=== PATIENT | male | born 1980 | race Caucasian/White ===

== ENCOUNTER 2019-01-19 17:39 | Emergency (ER) | payer OTHER ==
--- OUTSIDE RECORDS SUMMARY | 2019-01-19 17:41 | XMS REPORT | Summary of Care ---
:1980 Author Organization [facility] Address [address] [place] [address] Care Team Providers Name Role Phone Wilson Bailon Primary Care Provider Reason for Referral (Routine) Status Reason Specialty Diagnoses / Procedures Referred By Contact Referred To Contact Closed Cardiology Diagnoses Chest pain, unspecified type Jaden Francisco MD Procedures DOBUTAMINE STRESS ECHO Preferred Location: [address] [place] [address] Reason for Visit (Routine) Status Reason Specialty Diagnoses / Procedures Referred By Contact Referred To Contact Closed Cardiology Diagnoses Chest pain, unspecified type Jaden Francisco MD Procedures DOBUTAMINE STRESS ECHO Preferred Location: [address] [place] [address] Encounter Details Date Type Department Care Team Description 11/02/2018 Laboratory Only [facility] Sean Zarate MD [address] [address] Chest pain, Cardiology- [place] Visit, [facility] Nurse unspecified type [facility], [facility] [address], [facility] [place] [address] Allergies Active Allergy Reactions Severity Noted Date Comments Codeine Hallucinations 02/28/2018 hallucinations Corticosteroids Unknown - See 03/24/2018 All steroids- (Glucocorticoids) comments hallucinations Prednisone Hallucinations 02/28/2018 Any PO steroids documented as of this encounter (statuses as of 11/02/2018) Medications Hospital, Clinic, Ordered Dose Route Frequency Start Date End Date Status or Other Facility Administered Medication NaCl 0.9% (NS) IV 250 mL IV Infusion CONTINUOUS 11/02/2018 Discontinued infusion 250 9 mLIndications: Chest pain, unspecified type DOBUTamine 515 mcg/min IV TITRATE 11/02/2018 Discontinued (DOBUTREX) 500 mg 9 in 250mL(Fixed Dose) D5W infusionIndication s: Chest pain, unspecified type atropine injection 1 mg SIVP ONCE 11/02/2018 Ended 1 mgIndications: 9 Chest pain, unspecified type metoprolol 5 mg SIVP ONCE 11/02/2018 Ended (LOPRESSOR) 9 injection 5 mgIndications: Chest pain, unspecified type sulfur 5 mL SIVP ONCE 11/02/2018 Ended hexafluoride 9 microsphr (LUMASON) injection 5 mLIndications: Chest pain, unspecified type documented as of this encounter (statuses as of 11/02/2018) Active Problems Not on filedocumented as of this encounter (statuses as of 11/02/2018) Social History Tobacco Use Types Packs/Day Years Used Date Never Smoker Smokeless Tobacco: Never Used Alcohol Use Drinks/Week oz/Week Comments No Sex Assigned at Date Recorded Not on file Job Start Date Occupation Industry Not on file Not on file Not on file Travel History Travel Start Travel End No recent travel history available. documented as of this encounter Last Filed Vital Signs Vital Sign Reading Time Taken Comments Blood Pressure 116/75 11/02/2018 10:48 AM CDT Pulse - - Temperature - - Respiratory Rate - - Oxygen Saturation - - Inhaled Oxygen Concentration - - Weight 101.6 kg (224 lb) 11/02/2018 10:00 AM CDT Height 180.3 cm (5' 11") 11/02/2018 10:00 AM CDT Body Mass Index 31.24 11/02/2018 10:00 AM CDT documented in this encounter Patient Instructions Rehana Brewster RN - 11/02/2018 Discharge Instructions: Diet: You may resume your normal diet. Activity: You may resume your normal physical activity including driving and return to work. Medications: You may resume all medications that you were instructed to stop for this test. Site Care: No special instructions. It is possible that a small amount of blood may ooze from the IV site for afew hours following the procedure. In this event, a small bandage may be used over the site. Any blood oozing should stop within a few hours after the IV has been discontinued. You may notice slight bruising or tenderness at the site, which should go away within two to three days. If you notice any swelling, increased soreness or tenderness, redness, red streaks radiating from the IV site, and/or a feeling of warmth or heat around the IV site, notify your physician, as this could indicate infection. Office Visit: Your test results will be provided to your physician. Depending on the results of your test, your physician may want you to schedule a visit within a certain period of time in order to discuss treatment options, additional testing/ diagnostic options, and/or to follow up on your status. Warning Signs/Symptoms to Monitor You should report any chest pain or discomfort, shortness of breath, dizziness or nausea to your physician. If these symptoms are severe and/or persistent, you should call [id number]. If you continue to feel tired or weak for more than a day after the procedure, call your physician immediately. [facility] Cardiology office: [phone] documented in this encounter Plan of Treatment Name Type Priority Associated Diagnoses Order Schedule Oxygen Saturation PROCEDURES Routine Chest pain, CONTINUOUS until unspecified type discontinued starting 11/02/2018 EKG-12 LEAD ROUTINE HEART STATION Routine Chest pain, CONTINUOUS until unspecified type discontinued starting 11/02/2018 Health Maintenance Due Date Last Done Comments VARICELLA VACCINES (1 of 2 - 13+ 1993 2-dose series) DTaP,Tdap,and Td Vaccines ( - 09/16/1999 Tdap) INFLUENZA VACCINE (#1) 2018 PNEUMOCOCCAL 0-64 YEARS COMBINED Aged Out No longer eligible based on SERIES patient's age to complete this topic documented as of this encounter Results Not on filedocumented in this encounter Visit Diagnoses Diagnosis Chest pain, unspecified type documented in this encounter Administered Medications Medication Order MAR Action Action Date Dose Rate Site atropine injection 1 mg Given 11/02/2018 10:59 AM CDT 1 mg 1 mg, Slow IV Push, ONCE, 1 dose, 11/02/18 at 1115, Routine DOBUTamine (DOBUTREX) Rate Change 11/02/2018 11:05 AM 40 mcg/kg/min 123.6 mL/hr 500 mg in 250mL(Fixed CDT Dose) D5W infusion at 15.45 mL/hr, 5 mcg/kg/min 103 kg (15.45 mL/hr), Intravenous, TITRATE, Starting Wed11/02/18 at 1003, Until Wed11/02/18 at 1120, Routine Rate Change 11/02/2018 11:02 AM CDT 30 mcg/kg/min 92.7 mL/hr Rate Change 11/02/2018 10:59 AM CDT 20 mcg/kg/min 61.8 mL/hr metoprolol (LOPRESSOR) injection 5 mg Given 11/02/2018 11:07 AM CDT 2.5 mg 5 mg, Slow IV Push, ONCE, 1 dose, Wed11/02/18 at 1115, Routine NaCl 0.9% (NS) IV infusion 250 mL New Bag 11/02/2018 10:25 AM CDT 250 mL 50 mL/hr at 50 mL/hr, IV Infusion, CONTINUOUS, Starting Wed11/02/18 at 1115, Until Wed11/02/18 at 1120, Routine, To keep vein open, sulfur hexafluoride microsphr (LUMASON) Given 11/02/2018 10:49 AM CDT 5 mL injection 5 mL 5 mL, Slow IV Push, ONCE, 1 dose, Wed11/02/18 at 1115, Routine documented in this encounter Insurance Payer Benefit Plan / Subscriber ID Effective Phone Address Type Group Dates [facility] [id number] 2017-Radhames [phone] [address] [employer] [facility] 86 [id number] [place] [address] (Work) documented as of this encounter
--- OUTSIDE RECORDS SUMMARY | 2019-01-19 17:41 | XMS REPORT | Summary of Care ---
:1980 Author Organization [facility] Address [address] [place] [address] Care Team Providers Name Role Phone Wilson Bailon Primary Care Provider Reason for Referral (Routine) Status Reason Specialty Diagnoses / Procedures Referred By Contact Referred To Contact Closed Cardiology Diagnoses Chest pain, unspecified type Jaden Francisco MD Procedures DOBUTAMINE STRESS ECHO Preferred Location: [address] [place] [address] Reason for Visit (Routine) Status Reason Specialty Diagnoses / Procedures Referred By Contact Referred To Contact Closed Cardiology Diagnoses Chest pain, unspecified type Jaden Francisco MD Procedures DOBUTAMINE STRESS ECHO Preferred Location: [address] [place] [address] Encounter Details Date Type Department Care Team Description 11/02/2018 Laboratory Only [facility] Sean Zarate MD [address] [address] Chest pain, Cardiology- [place] Visit, [facility] Nurse unspecified type [facility], [facility] [address], [facility] [place] [address] Allergies Active Allergy Reactions Severity [...] after the procedure, call your physician immediately. [facility] Cardiology office: [phone] documented in this encounter Plan of Treatment [...] ID Effective Phone Address Type Group Dates [facility] [id number] 2017-Radhames [phone] [address] [employer] [facility] 86 [phone] [place] [address] (Work) documented as of this encounter
--- OUTSIDE RECORDS SUMMARY | 2019-01-19 17:41 | XMS REPORT | Summary of Care ---
:1980 Author Organization [facility] Address [address] [place] [address] Care Team Providers Name Role Phone Uvaldo Wilson Primary Care Provider Reason for Referral (Routine) Status Reason Specialty Diagnoses / Referred By Referred To Procedures Contact Contact Authorized Cardiology Diagnoses Palpitations Jaden Francisco MD Procedures EVENT MONITOR 30 DAYS [address] [facility] [address] [place] [address] (Routine) Status Reason Specialty Diagnoses / Referred By Referred To Procedures Contact Contact Authorized Cardiology Diagnoses Palpitations Jaden Francisco MD Procedures EVENT MONITOR 30 DAYS [address] [facility] [address] [place] [address] (Routine) Status Reason Specialty Diagnoses / Procedures Referred By Contact Referred To Contact Closed Cardiology Diagnoses Chest pain, unspecified type Jaden Francisco MD Procedures DOBUTAMINE STRESS ECHO Preferred Location: [facility] [address] [facility] [address] [place] [address] Reason for Visit Reason Comments Chest Pain Patient was having chest pain for a week and a half on/off Encounter Details Date Type Department Care Team Description 08/31/2018 Office Visit [facility] Jaden Francisco MD Chest pain, unspecified type (Primary Dx); Cardiology- [address] Palpitations 146 [facility], [address] [place] [address] [phone] Allergies Active Allergy Reactions Severity Noted Date Comments Codeine Hallucinations 02/28/2018 hallucinations Corticosteroids Unknown - See 03/24/2018 All steroids- (Glucocorticoids) comments hallucinations Prednisone Hallucinations 02/28/2018 Any PO steroids documented as of this encounter (statuses as of 11/03/2018) Medications No known medicationsdocumented as of this encounter (statuses as of 11/03/2018) Active Problems Not on filedocumented as of this encounter (statuses as of 11/03/2018) Social History Tobacco Use Types Packs/Day Years [...] Sign Reading Time Taken Comments Blood Pressure 109/75 08/31/2018 8:52 AM CDT Pulse 86 08/31/2018 8:52 AM CDT Temperature - - Respiratory Rate 18 08/31/2018 8:52 AM CDT Oxygen Saturation 96% 08/31/2018 8:52 AM CDT Inhaled Oxygen Concentration - - Weight 103 kg (227 lb) 08/31/2018 8:52 AM CDT Height 180.3 cm (5' 11") 08/31/2018 8:52 AM CDT Body Mass Index 31.66 08/31/2018 8:52 AM CDT documented in this encounter Progress Notes Rehana Mark RN - 08/31/2018 8:40 AM CDTPatient enrolled for home delivery of MCOT event monitor through [employer]. Patient should receive monitor in 24-28 hours and begin monitoring as soon as he receives. He verbalized understanding via teach back.Electronically signed by Rehana Mark RN at 2:27 PM BRIANTCvictor manuel, MD Jaden - 08/31/2018 8:40 AM CDT CARDIOLOGY CLINIC NOTE 08/31/2018 Reason for Referral/Presenting Complaint: chest pain, palpitations PCP: Wilson Bailon History of Present Illness: Wilson Fonseca is a 37 years old male without significant medical history. He is here for evaluation of chest pain. He has had episodes of chest pain for a number of years. He feels "gas" in the central chest, non-exertional, lasting minutes or hours, associate with dyspnea on exertion. 2 episodes ofpalpitations last year in 02/2017 and 11/2017, lasting 30 mins each time. 5 yrs ago had cardiac workup. Treadmill stress test and ECHO were normal in 2019. Today he is here for chest pain and palpitations. Chest pain is precordial, non exertional, varies in location--left or right, no radiation or associated symptoms. Feels mild SOB when climbing stairs. Racing heart randomly, more so at night. Able to walk 1 mile without problem. Review of Systems: General: (-) fever, (-) chills, (-) weight change, (-) dizziness, (-) fatigue Skin: (-) rash HEENT: (-) headache, (-) change in vision Neck: (-) difficulty swallowing Heme: negative Resp: (-) cough, (-) dyspnea on exertion Cardio: (+) chest pain, (+) palpitations, (-) syncope GI: (-) vomiting, (-) diarrhea : negative Endo: (-) diabetes, (-) thyroid disease Neuro: (-) numbness, (-) tingling, (-) weakness Back: (-) pain DOMO: (-) muscle pain, (-) claudication Psych: (-) anxiety, (-) depression Past Medical History: No past medical history on file. Current Medications: No current outpatient medications on file. No current facility-administered medications for this visit. Social History: Social History Socioeconomic History Marital status: Single Spouse name: Not on file Number of children: Not on file Years of education: Not on file Highest education level: Not on file Occupational History Not on file Social Needs Financial resource strain: Not on file Food insecurity: Worry: Not on file Inability: Not on file Transportation needs: Medical: Not on file Non-medical: Not on file Tobacco Use Smoking status: Never Smoker Smokeless tobacco: Never Used Substance and Sexual Activity Alcohol use: No Drug use: No Sexual activity: Not on file Lifestyle Physical activity: Days per week: Not on file Minutes per session: Not on file Stress: Not on file Relationships Social connections: Talks on phone: Not on file Gets together: Not on file Attends hinduism service: Not on file Active member of club or organization: Not on file Attends meetings of clubs or organizations: Not on file Relationship status: Not on file Intimate partner violence: Fear of current or ex partner: Not on file Emotionally abused: Not on file Physically abused: Not on file Forced sexual activity: Not on file Other Topics Concern Not on file Social History Narrative Not on file Family History Family History Problem Relation Age of Onset Hypertension Mother Heart Father valve disease Physical Examination: BP 109/75 (BP Location: Left arm, Patient Position: Sitting, BP CUFF SIZE: Adult Large) | Pulse 86| Resp 18 | Ht 5' 11" (1.803 m) | Wt 227 lb (103 kg) | SpO2 96% | BMI 31.66 kg/m Constitutional: alert and oriented x 3 (person, place and date/time); no apparent distress ENT: normocephalic atraumatic, supple, no lymphadenopathy, no bruits, no JVD Lungs: clear to auscultation bilaterally Cardiovascular: S1, S2 normal, regular; no murmurs, rubs or gallops GI: soft; non-tender; non-distended; normoactive bowel sounds : not examined Musculoskeletal: Extremities: no clubbing, cyanosis, or edema Skin: no rashes Neuro: no focal deficits Cardiovascular testing: EKG: Normal sinus rhythm. Normal EKG. 08/31/2018 ---reviewed by me--Normal sinus rhythm. Normal EKG. ECHO--03/2018 Ejection Fraction=55-60%. The left ventricular wall motion is normal. Estimated RA pressure is 0-5 mmHg. Insufficient Tricuspid regurgitation jet to estimate RVSP. Treadmill stress test--03/2018 Normal Assessment/Plan: ICD-10-CM ICD-9-CM 1. Chest pain, unspecified type R07.9 786.50 2. Palpitations R00.2 785.1 Chest pain--Atypical vs non-anginal. No major risk factors. Treadmill stress test is normal. Recurring symptoms. Will get a DSE to assess ischemia with higher accuracy. Palpitations--Could be due to stress/anxiety. Will get a 30-day event monitor to assess arrhythmias. Jaden Francisco MD, FACC, FLOR Activity Therapy Specialist, Division of Cardiology [facility] documented in this encounter Plan of Treatment Name Type Priority Associated Diagnoses Order Schedule EKG-12 LEAD HEART STATION Routine Chest pain, unspecified Ordered: 2018 ROUTINE type EVENT MONITOR 30 PROCEDURES Routine Palpitations 1 Occurrences DAYS starting 08/31/2018 until 10/31/2018 Health Maintenance Due Date Last Done Comments VARICELLA VACCINES (1 of 2 - 13+ 1993 2-dose series) DTaP,Tdap,and Td Vaccines (1 - 09/16/1999 Tdap) INFLUENZA VACCINE (#1) 2018 PNEUMOCOCCAL 0-64 YEARS COMBINED Aged Out No longer eligible based on SERIES patient's age to complete this topic documented as of this encounter Procedures Procedure Name Priority Date/Time Associated Diagnosis Comments EKG-12 LEAD Routine 08/31/2018 9:00 AM CDT documented in this encounter Results DOBUTAMINE STRESS ECHO Preferred Location: [facility] (11/02/2018 10: 19 AM CDT) Specimen Performing Organization Address City/State/Zipcode Phone Number ECHO documented in this encounter Visit Diagnoses Diagnosis Chest pain, unspecified type - Primary Palpitations documented in this encounter Insurance Payer Benefit Plan / Subscriber ID Effective Phone Address Type Group Dates [facility] [id number] 2017-Radhames [phone] [address] [employer] [facility] [employer] [phone] [place] [address] (Home) [place] TOM[place] [phone] [place] [id number] (Work) documented as of this encounter
--- OUTSIDE RECORDS SUMMARY | 2019-01-19 17:41 | XMS REPORT ---
:1980 Author [facility] Address [address] [place] [address] Dr. Olvera [address] [place] [address] Care Team Providers Name Role Phone Unavailable Unavailable Unavailable Problems This patient has no known problems. Allergies, Adverse Reactions, Alerts This patient has no known allergies or adverse reactions. Medications This patient has no known medications.
--- OUTSIDE RECORDS SUMMARY | 2019-01-19 17:42 | XMS REPORT | Summary of Care ---
:1980 Author Organization [facility] Address [address] [place] [address] Care Team Providers Name Role Phone Wilson Bailon Primary Care Provider Reason for Visit Reason Comments Results DSE, EVENT MONITOR Encounter Details Date Type Department Care Team Description 11/04/2018 Telephone [facility] Jaden Francisco MD Results (DSE, EVENT Cardiology- [address] MONITOR) [address] [place] [address] Allergies Active Allergy Reactions Severity Noted Date Comments Codeine Hallucinations 02/28/2018 hallucinations Corticosteroids Unknown - See 03/24/2018 All steroids- (Glucocorticoids) comments hallucinations Prednisone Hallucinations 02/28/2018 Any PO steroids documented as of this encounter (statuses as of 11/04/2018) Medications No known medicationsdocumented as of this encounter (statuses as of 11/04/2018) Active Problems Not on filedocumented as of this encounter (statuses as of 11/04/2018) Social History Tobacco Use Types Packs/Day Years Used Date Never Smoker Smokeless Tobacco: Never Used Alcohol Use Drinks/Week oz/Week Comments No Sex Assigned at Date Recorded Not on file Job Start Date Occupation Industry Not on file Not on file Not on file Travel History Travel Start Travel End No recent travel history available. documented as of this encounter Last Filed Vital Signs Not on filedocumented in this encounter Plan of Treatment Health Maintenance Due Date Last Done Comments VARICELLA VACCINES (1 of 2 - 13+ 1993 2-dose series) DTaP,Tdap,and Td Vaccines ( - 09/16/1999 Tdap) INFLUENZA VACCINE (#1) 2018 PNEUMOCOCCAL 0-64 YEARS COMBINED Aged Out No longer eligible based on SERIES patient's age to complete this topic documented as of this encounter Results Not on filedocumented in this encounter Insurance Payer Benefit Plan / Subscriber ID Effective Phone Address Type Group Dates [facility] [id number] 2017-Radhames [phone] [employer] [facility] [phone] [place] [address] documented as of this encounter
--- OUTSIDE RECORDS SUMMARY | 2019-01-19 17:42 | XMS REPORT | Summary of Care ---
:1980 Author Organization [facility] Health Address [address] [place] [address] Care Team Providers Name Role Phone Wilson Bailon Primary Care Provider Encounter Details Date Type Department Care Team Description 09/16/2018 Orders Only [facility] Doctor Unassigned, No [address] [facility] [place] [address] [address] [place] [address] Allergies Active Allergy Reactions Severity Noted Date [...] Procedure Name Priority Date/Time Associated Diagnosis Comments CARDIOLOGY EVENT MONITOR Routine 09/16/2018 12:01 AM CDT documented in this encounter Results Not on filedocumented in this encounter Insurance Payer Benefit Plan / Subscriber ID Effective Phone Address Type Group Dates [facility] [id number] 2017-Radhames [phone] [address] [email or web address] [phone] [place] [address] documented as of this encounter
--- NOTE | 2019-01-19 18:55 | ER ---
Nurse's Notes [facility] Name: Wilson Fonseca Age: 38 yrs Sex: Male : 1980 Arrival Date: 01/19/2019 Time: 17:40 Bed 13 Private MD: Diagnosis: Laceration without foreign body of left middle finger without damage to nail Presentation: 01/19 18:17 Presenting complaint: Patient states: Changing a filter and tip of left middle finger jl7 was sliced off and I was washing it off at the sink and passed out "From so much blood loss.". Transition of care: patient was not received from another setting of care. Complicating Factors: There are no complicating factors for this patient. Onset of symptoms was January 19, 2019 at 17:00. Risk Assessment: Do you want to hurt yourself or someone else? Patient reports no desire to harm self or others. Initial Sepsis Screen: Does the patient meet any 2 criteria? No. Patient's initial sepsis screen is negative. Does the patient have a suspected source of infection? No. Patient's initial sepsis screen is negative. Care prior to arrival: Bleeding of injury controlled. 18:17 Method Of Arrival: Ambulatory jl7 18:17 Acuity: MARCIO 4 jl7 Historical: - Allergies: 18:20 Codeine; jl7 18:20 steroids; jl7 - Home Meds: 18:20 None [Active]; jl7 - PMHx: 18:20 None; jl7 - PSHx: 18:20 Appendectomy; cyst removal; jl7 - Immunization history:: Adult Immunizations not up to date. - Social history:: Smoking status: Patient/guardian denies using tobacco. - Ebola Screening: : No symptoms or risks identified at this time. Screenin:22 Abuse screen: Denies threats or abuse. Nutritional screening: No deficits noted. jd3 Tuberculosis screening: No symptoms or risk factors identified. Fall Risk Ambulatory Aid- None/Bed Rest/Nurse Assist (0 pts). Gait- Normal/Bed Rest/Wheelchair (0 pts) Mental Status- Oriented to own ability (0 pts). Total Singer Fall Scale indicates No Risk (0-24 pts). Assessment: 19:20 General: Appears in no apparent distress. comfortable, Behavior is calm, cooperative, jd3 appropriate for age. Pain: Complains of pain in palmar aspect of distal phalanx of left middle finger Quality of pain is described as stinging. Neuro: Level of Consciousness is awake, alert, obeys commands, Oriented to person, place, time, situation. Cardiovascular: Capillary refill < 3 seconds Patient's skin is warm and dry. Respiratory: Airway is patent Respiratory effort is even, unlabored, Respiratory pattern is regular, symmetrical. GI: No signs and/or symptoms were reported involving the gastrointestinal system. : No signs and/or symptoms were reported regarding the genitourinary system. EENT: No signs and/or symptoms were reported regarding the EENT system. Derm: Skin is intact, Skin is dry, Skin is normal, Skin temperature is warm. Musculoskeletal: Circulation, motion, and sensation intact. Range of motion: intact in all extremities. Injury Description: Laceration sustained to palmar aspect of distal phalanx of left middle finger is clean, superficial, 0.5 to 2.5 cm long, not bleeding. Vital Signs: 18:20 BP 120 / 84; Pulse 81; Resp 16 S; Temp 97.6(O); Pulse Ox 100% on R/A; Weight 102.06 kg jl7 (R); Height 5 ft. 11 in. (180.34 cm) (R); Pain 2/10; 18:20 Body Mass Index 31.38 (102.06 kg, 180.34 cm) jl7 ED Course: 17:40 Patient arrived in ED. as 18:19 Triage completed. jl7 18:20 Arm band placed on right wrist. jl7 18:34 Felicia العلي FNP-C [facility]. kb 18:34 Dayron Mckeon MD is Attending Physician. kb 18:50 Camille López, SHAYLA is Primary Nurse. rb1 19:19 Wound care: to avulsion located on palmar aspect of distal phalanx of left middle jd3 finger was cleaned with dressed with tube gauze , Patient tolerated well. 19:22 Patient has correct armband on for positive identification. Bed in low position. Call jd3 light in reach. Side rails up X 1. Adult w/ patient. 19:22 No provider procedures requiring assistance completed. Patient did not have IV access jd3 during this emergency room visit. 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 Exp: jd3 07/21/2020. Lot #: [id number]. } Route: IM; Site: left deltoid; 19:25 Follow up: Response: No adverse reaction jd3 Outcome: 18:54 Discharge ordered by . rosalind 19:25 Discharged to home ambulatory. jd3 19:25 Condition: stable 19:25 Discharge instructions given to patient, Instructed on discharge instructions, follow up and referral plans. Demonstrated understanding of instructions, follow-up care. 19:25 Patient left the ED. jd3 Signatures: Felicia العلي, STEWARD/STEWARDESS LOUNGE-C STEWARD/STEWARDESS LOUNGE-Janessa Javier Rebecca, RN RN rb1 Mehdi Barreto RN RN jl7 Raoul Carbajal RN RN jd3
--- NOTE | 2019-01-19 18:56 | EDPHYS ---
Physician Documentation [facility] Name: Wilson Fonseca Age: 38 yrs Sex: Male : 1980 Arrival Date: 01/19/2019 Time: 17:40 Bed 13 Private MD: ED Physician Dayron Mckeon HPI: 01/19 18:50 This 38 yrs old Male presents to ER via Ambulatory with complaints of kb Laceration - Finger. 18:52 The patient has a laceration related to: changing a home air filter occurred at home, kb and there are no complicating factors. The injury was accidental. The laceration(s) is(are) located on the palmar aspect of distal phalanx of left middle finger. Onset: The symptoms/episode began/occurred 2 hour(s) ago. Associated signs and symptoms: Pertinent positives: heavy bleeding, loss of consciousness, Pertinent negatives: deformity, dizziness, numbness distal to injury, suspected foreign body. The patient has not experienced similar symptoms in the past. The patient has not recently seen a physician. Pt reports he was changing an air filter and his hand slipped while he was trying to pull it out causing laceration to left middle finger. States it was bleeding freely for about 3 minutes in the sink and while he was watching it he got lightheaded and passed out. Mother was there and said he was out for about a minute. Pt denies headache, visual changes, dizziness. Pt's vitals stable. Historical: - Allergies: 18:20 Codeine; jl7 18:20 steroids; jl7 - Home Meds: 18:20 None [Active]; jl7 - PMHx: 18:20 None; jl7 - PSHx: 18:20 Appendectomy; cyst removal; jl7 - Immunization history:: Adult Immunizations not up to date. - Social history:: Smoking status: Patient/guardian denies using tobacco. - Ebola Screening: : No symptoms or risks identified at this time. ROS: 18:51 Constitutional: Negative for fever, chills, and weight loss, Neck: Negative for injury, kb pain, and swelling, Cardiovascular: Negative for chest pain, palpitations, and edema, Respiratory: Negative for shortness of breath, cough, wheezing, and pleuritic chest pain, Abdomen/GI: Negative for abdominal pain, nausea, vomiting, diarrhea, and constipation, Back: Negative for injury and pain, MS/Extremity: Negative for injury and deformity, Neuro: Negative for headache, weakness, numbness, tingling, and seizure. 18:51 Skin: Positive for laceration(s), of the palmar aspect of distal phalanx of left middle finger. Exam: 18:50 Constitutional: This is a well developed, well nourished patient who is awake, alert, kb and in no acute distress. Head/Face: Normocephalic, atraumatic. Neck: Trachea midline, no thyromegaly or masses palpated, and no cervical lymphadenopathy. Supple, full range of motion without nuchal rigidity, or vertebral point tenderness. No Meningismus. Chest/axilla: Normal chest wall appearance and motion. Nontender with no deformity. No lesions are appreciated. Cardiovascular: Regular rate and rhythm with a normal S1 and S2. No gallops, murmurs, or rubs. Normal PMI, no JVD. No pulse deficits. Respiratory: Lungs have equal breath sounds bilaterally, clear to auscultation and percussion. No rales, rhonchi or wheezes noted. No increased work of breathing, no retractions or nasal flaring. Abdomen/GI: Soft, non-tender, with normal bowel sounds. No distension or tympany. No guarding or rebound. No evidence of tenderness throughout. MS/ Extremity: Pulses equal, no cyanosis. Neurovascular intact. Full, normal range of motion. Neuro: Awake and alert, GCS 15, oriented to person, place, time, and situation. Cranial nerves II-XII grossly intact. Motor strength 5/5 in all extremities. Sensory grossly intact. Cerebellar exam normal. Normal gait. 18:50 Skin: injury, laceration(s), the wound is approximately 2 cm(s), of the palmar aspect of distal phalanx of left middle finger, that can be described as clean, no foreign body, avulsion laceration. Vital Signs: 18:20 BP 120 / 84; Pulse 81; Resp 16 S; Temp 97.6(O); Pulse Ox 100% on R/A; Weight 102.06 kg jl7 (R); Height 5 ft. 11 in. (180.34 cm) (R); Pain 2/10; 18:20 Body Mass Index 31.38 (102.06 kg, 180.34 cm) jl7 MDM: 18:34 Patient medically screened. kb 18:45 Data reviewed: vital signs, nurses notes. Data interpreted: Pulse oximetry: on room air kb is 100 %. Interpretation: normal. Counseling: I had a detailed discussion with the patient and/or guardian regarding: the historical points, exam findings, and any diagnostic results supporting the discharge/admit diagnosis, the need for outpatient follow up, a family practitioner, to return to the emergency department if symptoms worsen or persist or if there are any questions or concerns that arise at home. 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 Exp: jd3 07/21/2020. Lot #: [id number]. } Route: IM; Site: left deltoid; 19:25 Follow up: Response: No adverse reaction jd3 Disposition: 01/19/19 18:54 Discharged to Home. Impression: Laceration without foreign body of left middle finger without damage to nail. - Condition is Stable. - Discharge Instructions: Laceration Care, Adult, [id number]. - Medication Reconciliation Form, Thank You Letter, Antibiotic Education, Prescription Opioid Use form. - Follow up: Emergency Department; When: As needed; Reason: Worsening of condition. Follow up: Private Physician; When: 2 - 3 days; Reason: Recheck today's complaints, Continuance of care, Re-evaluation by your physician. Addendum: 01/23/2019 07:25 Co-signature as Attending Physician, Dayron Mckeon MD. r n Signatures: Felicia العلي, ALL ROUND LOGGER-C ALL ROUND LOGGER-Ckb Dayron Mckeon MD MD rn Leal, Jahala, RN RN jl7 Raoul Carbajal RN RN jd3 Corrections: (The following items were deleted from the chart) 01/19 19:25 18:54 01/19/2019 18:54 Discharged to Home. Impression: Laceration without foreign body jd3 of left middle finger without damage to nail. Condition is Stable. Forms are Medication Reconciliation Form, Thank You Letter, Antibiotic Education, Prescription Opioid Use. Follow up: Emergency Department; When: As needed; Reason: Worsening of condition. Follow up: Private Physician; When: 2 - 3 days; Reason: Recheck today's complaints, Continuance of care, Re-evaluation by your physician. kb
[2019-01-19] MEDS ORDERED: TETANUS & DIPHTHERIA TOX,ADULT 0.5 ML VIAL ONE (19:02)
[2019-01-19 22:16] VITALS: BP 120/84; TEMP 97.6; O2SAT 100
== END 2019-01-19 19:25 | disposition home or self-care (01) ==
LOC: ER 17:39
DX: S61.213A Laceration without foreign body of left middle finger without damage to nail, initial encounter (principal); Z23 Encounter for immunization; W26.8XXA Contact with other sharp object(s), not elsewhere classified, initial encounter; Y93.E9 Activity, other interior property and clothing maintenance; Y92.009 Unspecified place in unspecified non-institutional (private) residence as the place of occurrence of the external cause; Z88.5 Allergy status to narcotic agent; Z88.8 Allergy status to other drugs, medicaments and biological substances
CPT/HCPCS: 90471; 90714; 99283

== ENCOUNTER 2022-01-09 14:01 | Observation (INO) | payer OTHER ==
--- OUTSIDE RECORDS SUMMARY | 2022-01-09 14:39 | XMS REPORT | Continuity of Care Document ---
:[address] [facility] t Address [address] [place] [address] Care Team Providers Name Role Phone Matt Lowe MD, [facility] Primary Care Physician [phone] BESSIE VICKERS Attending Clinician Unavailable Payers Payer Name Policy Type Policy Number Effective Date Expiration Date [facility] [id number] 2017 CHOICE 00:00:00 Problems This patient has no known problems. Allergies, Adverse Reactions, Alerts Allergy Allergy Status Severity Reaction(s) Onset Inactive Treating Comm ents Source Name Type Date Date Clinician Codeine [facility] reaction [facility] Steroids Propensi [facility]: [facility] reaction 00 Center s CORTICOS Drug Active Unknown-Cmnt Un joao TEROIDS Class 2-07 ity of (GLUCOCO 00:00: [place] RTICOIDS 00 Medical ) Branch Codeine Propensi Active hallucina Meth kai ty to 2-[address] adverse 00:00: Hospita reaction 00 l s to drug Corticos Propensi Active All Method i teroids ty to 2-07 steroids- st (Glucoco adverse 00:00: hallucina Hosp danielito rticoids reaction 00 tions l ) s to drug CODEINE DRUG Active Hallucinates Uni vers INGREDI 1-14 ity of 00:00: [place] 00 Medical Branch PREDNISO DRUG Active Hallucinates Un joao NE INGREDI 1-14 ity of 00:00: [place] 00 Medical Branch Family History Family Member Diagnosis Comments Start Date Stop Date Source Natural father Cirrhosis [facility] Natural mother GERD [facility] Social History Social Habit Start Date Stop Date Quantity Comments Source History SDOH [facility] Alcohol Comment Medical C enter History SDOH [facility] Std Drinks Hospit al History SDMA [facility] Tobacco use and 2019-03-03 2019-03-[address] [facility] kes exposure 00:00:00 00:00:00 Medical Center Alcohol intake 2018-05-02 2018-05-02 Current [facility] 00:00:00 00:00:00 non-drinker of Hospital alcohol (finding) History SDOH 2018-04-28 2018-04-28 1 [facility] Alcohol Frequency 00:00:00 00:00:00 Hospita l Sex Assigned At [birth year] [facility] 00:00:00 00:00:00 Hospital Smoking Status Start Date Stop Date Source Never smoker [facility] Medications Ordered Filled Start Stop Current Ordering Indication Dosage Frequency Signature Comments Components Source Medication Medication Date Date Medication? Clinician (SIG) Name Name RESTASIS 2017-02 Yes INSTILL 1 Meth kai 0.05 % 2-[address] ophthalmic 00:00: BOTH EYES [facility] emulsion 00 TWICE A l DAY Procedures This patient has no known procedures. Plan of Care Planned Activity Planned Date Details Comments Source Future Scheduled 2022-01-04 HEPATITIS B VACCINES Met [facility] Test 07:54:23 (1 of 3 - 3-dose series) [code = HEPATITIS B VACCINES (1 of 3 - 3-dose series)] Future Scheduled 2022-01-04 COVID-19 VACCINE [facility] Test 07:54:23 (#1) [code = COVID-19 VACCINE (#1)] Future Scheduled 2022-01-04 INFLUENZA VACCINE Method [facility] Hospital Test 07:54:23 [code = INFLUENZA VACCINE] Future Scheduled 2021-10-[address] [facility] Test 00:00:00 (#1) [code = Medical Center INFLUENZA VACCINE (#1)] Future Scheduled 2021-02-[address] [facility] Test 00:00:00 (12+) [code = Medical Center DEPRESSION SCREENING (12+)] Future Scheduled 2015-09-[address] [facility] Test 00:00:00 (procedure) [code = [facility] [id number]] Future Scheduled 1999-09-16 DTAP/TDAP/TD [facility] Test 00:00:00 VACCINES (1 - Tdap) [facility] [code = DTAP/TDAP/TD VACCINES (1 - Tdap)] Future Scheduled [address] [facility] Test 00:00:00 SCREENING [code = Medical nter HEPATITIS C SCREENING] Future Scheduled [address] [facility] Test 00:00:00 Counseling and Medical Cent[facility] r Screening (12+) [code = Tobacco Cessation Counseling and Screening (12+)] Future Scheduled 1981-03-18 COVID-[address] [facility] Test 00:00:00 (#1) [code = [facility] COVID-19 VACCINE (#1)] Encounters Start End Encounter Admission Attending Care Care Encounter Source Date/Time Date/Time Type Type Clinicians Facility Department ID 2019-08-22 2019-08-22 Outpatient Angel VICKERS [facility] [id number] [facility] 11:00:00 11:00:00 BESSIE monzon [facility] Results This patient has no known results.
--- NOTE | 2022-01-09 16:10 | RAD REPORT ---
EXAM DESCRIPTION: Heydi Single View01/09/2022 4:03 pm CLINICAL HISTORY: Palpitations COMPARISON: 2015 FINDINGS: The lungs appear clear of acute infiltrate. The heart is normal size IMPRESSION: No acute abnormalities displayed
[2022-01-09 16:42] LABS: Urine Blood Negative (Negative); Urine Glucose Negative (Negative); Urine Protein Negative (Negative)
[2022-01-09 16:51] LABS: Absolute Lymphocytes (CBC) 1.2 K/uL (0.7-4.9); Hematocrit 46.7 % (39.6-49.0); Lymphocytes % 14.4 % (15.3-44.8); MPV 7.2 fL (7.6-11.3); Protime INR 1.11; RBC Red Blood Cell Count 5.24 M/uL (4.33-5.43)
[2022-01-09] MEDS ORDERED: ASPIRIN 81 MG CHEWABLE TABLET ONE (17:02)
[2022-01-09] MEDS ORDERED: ENOXAPARIN 100 MG/ML SYR SQ ONE (17:03)
[2022-01-09] MEDS ORDERED: METOPROLOL TARTRATE 5 MG/5 ML INJ IV ONE (17:03)
[2022-01-09] MEDS ORDERED: NA CHLORIDE 0.9% 1,000 ML ONE (17:03)
[2022-01-09 17:04] LABS: Barbiturates NEGATIVE (NEGATIVE); Benzodiazepines NEGATIVE (NEGATIVE); Cocaine NEGATIVE (NEGATIVE); METHAMPHETAM NEGATIVE (NEGATIVE); Methadone NEGATIVE (NEGATIVE); Opiates NEGATIVE (NEGATIVE); Phencyclidine NEGATIVE (NEGATIVE); THC Cannibis NEGATIVE (NEGATIVE)
[2022-01-09 17:09] LABS: Albumin 3.9 g/dL (3.4-5.0); Bilirubin Direct 0.1 mg/dL (0-0.2); Bilirubin Total 0.7 mg/dL (0.2-1.0); Magnesium 2.2 mg/dL (1.8-2.4); Potassium 3.9 mmol/L (3.5-5.1); Protein, Total 7.6 g/dL (6.4-8.2); Troponin High Sensitivity 10.2 pg/mL (<58.9)
[2022-01-09 17:14] LABS: Urine Bacteria <20 /HPF (<20); Urine RBC <5 /HPF (None Seen)
--- NOTE | 2022-01-09 17:19 | ER ---
Nurse's Notes [facility] Name: Wilson Fonseca Age: 41 yrs Sex: Male : 1980 Arrival Date: 01/09/2022 Time: 14:02 Bed 16 Private MD: Vignesh Gutierrez E Diagnosis: Unspecified atrial fibrillation Presentation: 01/09 14:04 Chief complaint: Palpitations and SOB x 1 hour. Coronavirus screen: At this time, the client does not indicate any symptoms associated with coronavirus-19. Ebola Screen: No symptoms or risks identified at this time. Risk Assessment: Do you want to hurt yourself or someone else? Patient reports no desire to harm self or others. Onset of symptoms was January 09, 2022. 14:04 Method Of Arrival: Ambulatory 14:04 Acuity: MARCIO 2 ss 20:09 Initial Sepsis Screen: Does the patient meet any 2 criteria? No. Patient's initial kd3 sepsis screen is negative. Does the patient have a suspected source of infection? No. Patient's initial sepsis screen is negative. Historical: - Allergies: 14:06 Codeine; hb 14:06 steroids; hb - Immunization history:: Adult Immunizations up to date. - Social history:: Smoking status: unknown. Screenin:47 Abuse screen: Denies threats or abuse. Denies injuries from another. Nutritional kd3 screening: No deficits noted. Tuberculosis screening: No symptoms or risk factors identified. Fall Risk None identified. IV access (20 points). Assessment: 17:01 Reassessment:. 17:01 Reassessment: Pt brought from [facility] and placed in ER room 2. mb9 17:05 General: Appears uncomfortable, Behavior is anxious. Pain: Denies pain. Neuro: Level of mb9 Consciousness is awake, alert, obeys commands, Oriented to person, place, time, situation, Appropriate for age. Cardiovascular: Reports palpitations, Denies chest pain, Heart tones S1 S2 present Capillary refill < 3 seconds Edema is absent. Rhythm is atrial fibrillation with rapid ventricular response. Respiratory: Reports shortness of breath at rest since around noon today Airway is patent Respiratory effort is even, unlabored, Respiratory pattern is regular, symmetrical, Breath sounds are clear bilaterally. GI: Abdomen is flat, Bowel sounds present X 4 quads. Abd is soft and non tender X 4 quads. : Urine is clear. EENT: No signs and/or symptoms were reported regarding the EENT system. Derm: Skin is intact, Skin is dry, Skin is normal, Skin temperature is cool. Musculoskeletal: Range of motion: intact in all extremities. 17:20 Reassessment: Patient denies pain at this time. Patient states feeling better. Patient mb9 states symptoms have improved. 18:32 Pain: Denies pain. Neuro: Level of Consciousness is awake, alert, obeys commands, mb9 Oriented to person, place, time, situation, Appropriate for age. Cardiovascular: Denies chest pain, Rhythm is atrial fibrillation. Cardiovascular: Reports palpitations. Respiratory: Airway is patent Respiratory effort is even, Respiratory pattern is tachypnea Denies shortness of breath. 19:14 Reassessment: Report given to SHAYLA Suresh. mb9 20:09 General: Appears uncomfortable, Behavior is calm, cooperative. Pain: Pain does not kd3 radiate. Pain began gradually. Neuro: Level of Consciousness is awake, alert, obeys commands, Oriented to person, place, time, situation. Vital Signs: 14:04 BP 127 / 78; Pulse 88; Resp 16; Temp 98.3; Pulse Ox 100% ; Weight 99.79 kg; Height 5 hb ft. 11 in. (180.34 cm); Pain 0/10; 16:55 BP 128 / 89; Pulse 170; Resp 24; Pulse Ox 99% on R/A; hb 17:05 BP 111 / 83; Pulse 145; Resp 20; Pulse Ox 100% ; mb9 17:10 BP 115 / 86; Pulse 110; Resp 20; Pulse Ox 100% on R/A; mb9 17:15 BP 114 / 86; Pulse 84; Resp 20; Pulse Ox 100% on R/A; mb9 17:30 BP 120 / 92; Pulse 83; Resp 20; Pulse Ox 100% on R/A; Pain 0/10; mb9 17:45 BP 102 / 66; Pulse 74; Resp 20; Pulse Ox 100% on R/A; Pain 0/10; mb9 18:00 BP 101 / 69; Pulse 76; Resp 18; Pulse Ox 100% on R/A; Pain 0/10; mb9 18:31 BP 98 / 73; Pulse 88; Resp 24; Pulse Ox 100% on R/A; Pain 0/10; mb9 19:44 BP 107 / 77; Pulse 73; Resp 18; Pulse Ox 99% on R/A; kd3 20:13 BP 104 / 73; Pulse 68; Resp 16; Pulse Ox 99% on R/A; kd3 14:04 Body Mass Index 30.68 (99.79 kg, 180.34 cm) hb ED Course: 14:02 Patient arrived in ED. as 14:02 Vignesh Gutierrez MD is Private Physician. as 14:04 Arm band placed on. hb 14:06 Triage completed. hb 14:55 Chris Pope PA is PHCP. cp 14:55 Chris Ureña MD is Attending Physician. cp 16:05 XRAY Chest (1 view) In Process Unspecified. EDMS 16:46 Inserted saline lock: 20 gauge in right antecubital area, using aseptic technique. zm Blood collected. 16:47 T3 Free Sent. zm 16:47 TSH Sent. zm 16:47 Urine Microscopic Only Sent. zm 16:47 UDS Sent. zm 16:47 Basic Metabolic Panel Sent. zm 16:47 CBC with Diff Sent. zm 16:47 D-Dimer Sent. zm 16:47 LFT's Sent. zm 16:47 Magnesium Sent. zm 16:47 NT PRO-BNP Sent. zm 16:47 PT-INR Sent. zm 16:47 Troponin HS Sent. zm 16:58 Isamar Fair, RN is Primary Nurse. mb9 17:17 Ebenezer Jimenez MD is Hospitalizing Provider. cp 19:47 No provider procedures requiring assistance completed. Patient maintains SpO2 kd3 saturation greater than 95% on room air. 20:09 Patient has correct armband on for positive identification. Client placed on continuous kd3 cardiac and pulse oximetry monitoring. NIBP monitoring applied. Administered Medications: 17:03 Drug: Aspirin Chewable Tablet 324 mg Route: PO; mb9 18:31 Follow up: Response: No adverse reaction mb9 17:03 Drug: NS 0.9% 1000 ml Route: IV; Rate: 1 bolus; Site: right antecubital; mb9 17:05 Drug: Metoprolol 5 mg {Note: BP 115/94 HR 145.} Route: IVP; Site: right antecubital; mb9 17:05 Drug: Lovenox (enoxaparin) 1 mg/kg Route: Sub-Q; Site: right lower abdomen; mb9 18:30 Follow up: Response: No adverse reaction mb9 17:10 Drug: Metoprolol 5 mg {Note: BP 111/83 HR 115.} Route: IVP; Site: right antecubital; mb9 17:15 Drug: Metoprolol 5 mg {Note: BP 115/86 HR 94.} Route: IVP; Site: right antecubital; mb9 17:58 Follow up: Response: No adverse reaction mb9 17:28 Not Given (Physician Discretion): Metoprolol 25 mg PO once cp 17:29 Drug: Metoprolol 50 mg Route: PO; mb9 18:30 Follow up: Response: No adverse reaction mb9 Medication: 20:09 VIS not applicable for this client. kd3 Outcome: 17:19 Decision to Hospitalize by Provider. 01/10 11:09 Patient left the ED. kj1 Signatures: Dispatcher [employer] EDMS Janessa Lee Shelby, SHAYLA RN ss Chris Pope PA PA Nida Espino RN RN Bianka العلي kj1 Luisa Padilla RN RN kd3 Monse Lee Mary Beth RN RN mb9 Corrections: (The following items were deleted from the chart) 01/09 16:50 14:04 Acuity: MARCIO 3 hb ss 18:01 17:05 Metoprolol 5 mg IVP in right antecubital mb9 mb9 18:02 17:10 Metoprolol 5 mg IVP in right antecubital mb9 mb9 18:02 17:15 Metoprolol 5 mg IVP in right antecubital mb9 mb9
--- NOTE | 2022-01-09 17:20 | EDPHYS ---
Physician Documentation [facility] Name: Wilson Fonseca Age: 41 yrs Sex: Male : 1980 Arrival Date: 01/09/2022 Time: 14:02 Bed 16 Private MD: Vignesh Gutierrez E ED Physician Chris Ureña HPI: 01/09 15:55 This 41 yrs old Male presents to ER via Ambulatory with complaints of Irregular Pulse - cp 152. 15:55 The patient presents with a history of irregular heart beat, heart racing. cp 15:55 Context: The symptoms occur at rest. Onset: The symptoms/episode began/occurred today. cp Duration: The patient or guardian reports a single episode, that is still ongoing. Associated signs and symptoms: Pertinent positives: chest pain, Pertinent negatives: cough, fever, syncope, vomiting. Historical: - Allergies: 14:06 Codeine; hb 14:06 steroids; hb - Immunization history:: Adult Immunizations up to date. - Social history:: Smoking status: unknown. ROS: 16:00 Constitutional: Negative for body aches, chills, fever, poor PO intake. cp 16:00 Eyes: Negative for injury, pain, redness, and discharge. cp 16:00 ENT: Negative for drainage from ear(s), ear pain, sore throat, difficulty swallowing, difficulty handling secretions. 16:00 Cardiovascular: Positive for chest pain, palpitations, Negative for edema. 16:00 Respiratory: Negative for cough, shortness of breath, wheezing. 16:00 Abdomen/GI: Negative for abdominal pain, nausea, vomiting, and diarrhea. 16:00 Back: Negative for pain at rest, pain with movement. 16:00 Neuro: Negative for altered mental status, headache, syncope, weakness. 16:00 All other systems are negative. Exam: 16:05 Constitutional: The patient appears in no acute distress, alert, awake, cp non-diaphoretic, non-toxic, well developed, well nourished, uncomfortable. 16:05 Head/Face: Normocephalic, atraumatic. cp 16:05 Eyes: Periorbital structures: appear normal, Conjunctiva: normal, no exudate, no injection, Sclera: no appreciated abnormality, Lids and lashes: appear normal, bilaterally. 16:05 ENT: External ear(s): are unremarkable, Nose: is normal, Mouth: Lips: moist, Oral mucosa: moist, Posterior pharynx: Airway: no evidence of obstruction, patent. 16:05 Neck: ROM/movement: is normal, is supple, without pain, no range of motions limitations. 16:05 Chest/axilla: Inspection: normal, Palpation: is normal, no crepitus, no tenderness. 16:05 Cardiovascular: Rate: normal, Rhythm: regular, Heart sounds: murmur, not appreciated, Edema: is not appreciated, JVD: is not appreciated. 16:05 Respiratory: the patient does not display signs of respiratory distress, Respirations: normal, no use of accessory muscles, no retractions, labored breathing, is not present, Breath sounds: are clear throughout, no decreased breath sounds, no stridor, no wheezing. 16:05 Abdomen/GI: Inspection: abdomen appears normal, Bowel sounds: active, all quadrants, Palpation: abdomen is soft and non-tender, in all quadrants. 16:05 Back: pain, is absent, ROM is normal. 16:05 Skin: cellulitis, is not appreciated, no rash present. 16:05 Neuro: Orientation: to person, place \T\ time. Mentation: is normal, Motor: moves all fours, strength is normal, Sensation: is normal. 16:55 ECG was reviewed by the Attending Physician. 20:27 ECG was reviewed by the Attending Physician. Vital Signs: 14:04 BP 127 / 78; Pulse 88; Resp 16; Temp 98.3; Pulse Ox 100% ; Weight 99.79 kg; Height 5 hb ft. 11 in. (180.34 cm); Pain 0/10; 16:55 BP 128 / 89; Pulse 170; Resp 24; Pulse Ox 99% on R/A; hb 17:05 BP 111 / 83; Pulse 145; Resp 20; Pulse Ox 100% ; mb9 17:10 BP 115 / 86; Pulse 110; Resp 20; Pulse Ox 100% on R/A; mb9 17:15 BP 114 / 86; Pulse 84; Resp 20; Pulse Ox 100% on R/A; mb9 17:30 BP 120 / 92; Pulse 83; Resp 20; Pulse Ox 100% on R/A; Pain 0/10; mb9 17:45 BP 102 / 66; Pulse 74; Resp 20; Pulse Ox 100% on R/A; Pain 0/10; mb9 18:00 BP 101 / 69; Pulse 76; Resp 18; Pulse Ox 100% on R/A; Pain 0/10; mb9 18:31 BP 98 / 73; Pulse 88; Resp 24; Pulse Ox 100% on R/A; Pain 0/10; mb9 19:44 BP 107 / 77; Pulse 73; Resp 18; Pulse Ox 99% on R/A; kd3 20:13 BP 104 / 73; Pulse 68; Resp 16; Pulse Ox 99% on R/A; kd3 14:04 Body Mass Index 30.68 (99.79 kg, 180.34 cm) hb MDM: 15:02 Patient medically screened. cp 17:30 Data reviewed: vital signs, nurses notes, lab test result(s), EKG, radiologic studies, cp plain films. 17:30 Test interpretation: by ED physician or midlevel provider: ECG, plain radiologic cp studies. Counseling: I had a detailed discussion with the patient and/or guardian regarding: the historical points, exam findings, and any diagnostic results supporting the discharge/admit diagnosis, lab results, radiology results, the need for further work-up and treatment in the hospital. Response to treatment: the patient's symptoms have markedly improved after treatment, and as a result, I will admit patient. Physician consultation: Ebenezer Jimenez MD was called at 17:20, was contacted at 17:20, regarding admission, to the telemetry unit. patient's condition. 01/09 15:46 Order name: Basic Metabolic Panel; Complete Time: 17:11 01/09 17:11 Interpretation: Normal except: CL 108; GLUC 114. 01/09 15:46 Order name: CBC with Diff; Complete Time: 17:11 01/09 17:11 Interpretation: MPV 7.2; KEERTHI% 78.6; LYM% 14.4. 01/09 15:46 Order name: D-Dimer; Complete Time: 17:11 01/09 15:46 Order name: LFT's; Complete Time: 17:11 01/09 15:46 Order name: Magnesium; Complete Time: 17:11 01/09 15:46 Order name: NT PRO-BNP; Complete Time: 17:11 01/09 15:46 Order name: PT-INR; Complete Time: 17:11 cp 01/09 15:46 Order name: Troponin HS; Complete Time: 17:11 cp 01/09 15:46 Order name: UDS; Complete Time: 17:11 cp 01/09 15:46 Order name: Urine Microscopic Only; Complete Time: 17:15 cp 01/09 16:25 Order name: TSH; Complete Time: 20:33 cp 01/09 16:25 Order name: T3 Free; Complete Time: 20:33 cp 01/09 16:43 Order name: Urine Dipstick-Ancillary; Complete Time: 17:11 EDMS 01/09 15:46 Order name: XRAY Chest (1 view); Complete Time: 17:11 cp 01/09 15:46 Order name: EKG; Complete Time: 15:47 cp 01/09 15:46 Order name: Cardiac monitoring; Complete Time: 16:47 cp 01/09 15:46 Order name: EKG - Nurse/Tech; Complete Time: 18:31 cp 01/09 15:46 Order name: IV Saline Lock; Complete Time: 16:47 cp 01/09 15:46 Order name: Labs collected and sent; Complete Time: 16:47 cp 01/09 15:46 Order name: O2 Per Protocol; Complete Time: 16:47 cp 01/09 15:46 Order name: O2 Sat Monitoring; Complete Time: 16:47 cp 01/09 15:46 Order name: Urine Dipstick-Ancillary (obtain specimen); Complete Time: 16:47 cp EC:55 Rate is 150 beats/min. Rhythm is irregular. QRS interval is normal. QT interval is cp normal. Interpreted by me. Reviewed by me. 20:27 Rate is 70 beats/min. Rhythm is regular. CT interval is normal. QRS interval is normal. cp QT interval is normal. T waves are Inverted in lead aVR. Interpreted by me. Reviewed by me. Administered Medications: 17:03 Drug: Aspirin Chewable Tablet 324 mg Route: PO; mb9 18:31 Follow up: Response: No adverse reaction mb9 17:03 Drug: NS 0.9% 1000 ml Route: IV; Rate: 1 bolus; Site: right antecubital; mb9 17:05 Drug: Metoprolol 5 mg {Note: BP 115/94 HR 145.} Route: IVP; Site: right antecubital; mb9 17:05 Drug: Lovenox (enoxaparin) 1 mg/kg Route: Sub-Q; Site: right lower abdomen; mb9 18:30 Follow up: Response: No adverse reaction mb9 17:10 Drug: Metoprolol 5 mg {Note: BP 111/83 HR 115.} Route: IVP; Site: right antecubital; mb9 17:15 Drug: Metoprolol 5 mg {Note: BP 115/86 HR 94.} Route: IVP; Site: right antecubital; mb9 17:58 Follow up: Response: No adverse reaction mb9 17:28 Not Given (Physician Discretion): Metoprolol 25 mg PO once cp 17:29 Drug: Metoprolol 50 mg Route: PO; mb9 18:30 Follow up: Response: No adverse reaction mb9 Disposition Summary: 01/09/22 17:19 Hospitalization Ordered Hospitalization Status: Inpatient Admission cp Provider: Ebenezer Jimenez cp Condition: Stable cp Problem: new cp Symptoms: have improved cp Bed/Room Type: Standard cp Location: [facility] ER HOLD(01/09/22 18:52) cg Room Assignment: ERHOLD-(01/09/22 18:53) cg Diagnosis - Unspecified atrial fibrillation cp Forms: - Medication Reconciliation Form cp - SBAR form cp Signatures: Dispatcher [employer] EDChris Agustin PA PA cp Garcia, Cindy, RN RN cg Nida Espino RN RN Luisa Bridges RN RN Anupama Rojas PA-C PA-C sb4 Breneman, Mary Beth RN RN mb9 Corrections: (The following items were deleted from the chart) 18:52 17:19 Telemetry/MedSurg (Inpatient) cp cg 18:52 17:19 cp cg 18:53 18:52 cg cg
[2022-01-09] MEDS ORDERED: METOPROLOL TAR 50 MG TAB ONE (17:30)
[2022-01-09 20:20] LABS: T3 Free 2.59 pg/mL (2.18-3.98); Thyroid Stimulating Hormone 1.28 uIU/mL (0.360-3.740)
--- NOTE | 2022-01-09 20:31 | P.HP ---
Certification for Inpatient Patient admitted to: Observation With expected LOS: <2 Midnights Patient will require the following post-hospital care: None Practitioner: I am a practitioner with admitting privileges, knowledge of patient current condition, hospital course, and medical plan of care. Services: Services provided to patient in accordance with Admission requirements found in Title 42 Section 412.3 of the Code of Federal Regulations <Anupama Lisa - Last Filed: 01/10/22 01:30> Patient History Date of Service: 01/10/22 Reason for admission: afib new onset History of Present Illness: Patient is a 41-year male, who denies medical history, who presented to the ED with complaints of palpitations and shortness of breath that began at 1230 this afternoon. He was noted to be in afib RVR with rate of 152. He was given 3 separate rounds of 5 mg IV lopressor and 50 mg PO lopressor. His rate came down to the 70s-80s, but he remained in afib. About 2 hours later, he converted to NSR without any intervention. His labs are unremarkable. Patient reports that he has been told he has afib in the past and saw a stone and plate preparer apprentice 3-4 years ago where a stress test and echo were performed. He states they did not put him on any medications. He says every now and then, he will feel himself have episodes of afib, but they only last a few seconds. He was additionally given 324 mg aspirin and therapeutic lovenox in the ED. ED provider wishes to admit patient for observation. Home medications list reviewed: Yes (NA) - Past Medical/Surgical History Diabetic: No Past Medical History: Patient denies medical history -: Appendectomy Psychosocial/ Personal History: Patient lives at home with his mother. - Family History Father -: Other (see notes) (Atrial Fibrillation) - Social History Smoking Status: Never smoker Alcohol use: No CD- Drugs: No Caffeine use: Yes Place of Residence: Home <Anupama Lisa - Last Filed: 01/10/22 01:30> Date of Service: 01/10/22 <Ebenezer Jimenez - Last Filed: 01/10/22 09:46> Allergies codeine [Codeine] Adverse Reaction (Mild, Verified 01/27/12 20:05) Nausea/Vomiting st Allergy (Uncoded 02/26/15 00:21) Unknown Review of Systems Respiratory: Shortness of Breath Cardiovascular: Palpitations <SloanAnupama - Last Filed: 01/10/22 01:30> Physical Examination - Physical Exam General: Alert, In no apparent distress, Oriented x3 HEENT: Atraumatic, PERRLA, EOMI, Sclerae nonicteric Neck: Supple, 2+ carotid pulse no bruit, No LAD, Without JVD or thyroid abnormality Respiratory: Clear to auscultation bilaterally, Normal air movement Cardiovascular: Regular rate/rhythm, Normal S1 S2 Gastrointestinal: Normal bowel sounds, No tenderness Musculoskeletal: No tenderness Integumentary: No rashes Neurological: Normal speech, Normal strength at 5/5 x4 extr, Normal tone, Normal affect - Studies Laboratory Data (last 24 hrs) 01/09/22 16:34: PT 12.2, INR 1.11 01/09/22 16:34: WBC 8.10, Hgb 16.3, Hct 46.7, Plt Count 292 01/09/22 16:34: Sodium 139, Potassium 3.9, BUN 10, Creatinine 1.00, Glucose 114 H, Magnesium 2.2, Total Bilirubin 0.7, AST 19, ALT 44, Alkaline Phosphatase 84 <SloanAnupama - Last Filed: 01/10/22 01:30> - Studies Laboratory Data (last 24 hrs) 01/09/22 16:34: PT 12.2, INR 1.11 01/09/22 16:34: WBC 8.10, Hgb 16.3, Hct 46.7, Plt Count 292 01/09/22 16:34: Sodium 139, Potassium 3.9, BUN 10, Creatinine 1.00, Glucose 114 H, Magnesium 2.2, Total Bilirubin 0.7, AST 19, ALT 44, Alkaline Phosphatase 84 <Ebenezer Jimenez - Last Filed: 01/10/22 09:46> Assessment and Plan - Problems (Diagnosis) (1) Afib Current Visit: Yes Status: Acute Qualifiers: Atrial fibrillation type: paroxysmal Qualified Code(s): I48.0 - Paroxysmal atrial fibrillation - Plan Patient was initially afib RVR, rate decreased to 80s with IV metoprolol, later spontaneously converted to NSR. We will observe patient overnight and consult cardiology in the morning. Echo has been ordered. Received therapeutic lovenox in the ED, continue prophylactic dose in the morning. Thyroid panel within normal limits. UDS negative. Optimize electrolytes. Full code. Discharge Plan: Home Plan to discharge in: 24 Hours - Advance Directives Does patient have a Living Will: No Does patient have a Durable POA for Healthcare: No - Code Status/Comfort Care Code Status Assessed: Yes (Full) Critical Care: No Time Spent Managing Pts Care (In Minutes): 50 <Anupama Lisa - Last Filed: 01/10/22 01:30> Physician Review: Patient Assessed, Agree with Above Assessment and Plan <Ebenezer Jimenez - Last Filed: 01/10/22 09:46>
[2022-01-09] MEDS ORDERED: ACETAMINOPHEN 325 MG TABLET PO PRN (22:14)
[2022-01-10 05:07] VITALS: BMI 30.5
[2022-01-10 05:25] VITALS: TEMP 97.8
[2022-01-10] MEDS: METOPROLOL TAR 25 MG TAB PO SCH ×2 (06:18→09:07)
[2022-01-10] MEDS ORDERED: METOPROLOL TAR 25 MG TAB ONE (08:16)
[2022-01-10] MEDS ORDERED: ENOXAPARIN 40 MG/0.4 ML SQ ONE (08:17)
--- NOTE | 2022-01-10 08:34 | P.DS ---
Admission Date: 01/09/22 Discharge Date: 01/10/22 Disposition: ROUTINE DISCHARGE Discharge Condition: GOOD Reason for Admission: afib new onset Hospital Course: DIAGNOSES: # Paroxysmal Atrial Fibrillation with Rapid Ventricular Response HOSPITAL COURSE: Mr. Wilson Fonseca is a 41 year old male with a past medical history significant for paroxysmal atrial fibrillation who was admitted to the [facility] on 01/09/2022 for palpitations. He was admitted to the Medicine service. Upon further evaluation, he was found to have atrial fibrillation with rapid ventricular response. He was treated with IV metoprolol, with conversion of his rhythm to normal sinus rhythm. He demonstrated complete resolution of his symptoms. He states that he has been diagnosed with atrial fibrillation in the past. I have offered to start him on metoprolol at home, but he states that he does not wish to take any prescription medications on a scheduled basis. I explained that without an AV hari marlys, he is at risk of reverting back into atrial fibrillation. He states that he is willing to take the medication on an as-needed basis only. In regards to anticoagulation, his [id number] score is 0, which does not require systemic anticoagulation. I recommended that he take a baby aspirin daily, and he agreed to this. In regards to the etiology of his atrial fibrillation, he does report snoring in his sleep, which is suspicious for potential obstructive sleep apnea. I have advised that he follow-up with his PCP to schedule an outpatient sleep study. I have also advised that he schedule for a transthoracic echocardiogram during his outpatient follow-up with Dr. Avalos. On 01/10/2022, he was seen on morning rounds and deemed medically stable for discharge. He was discharged with instructions to schedule follow-up appointments with his PCP (Dr. Gutierrez) and with Cardiology (Dr. Avalos). He was provided a prescription for metoprolol. He was given the opportunity to ask questions and reported no further questions. Furthermore, all questions were answered to the best of my ability. A copy of this discharge summary will be sent to the above providers to facili brandt continuity of care. Today, I personally spent 20 minutes on his case, of which greater than 50% of the time was spent in patient education, counseling, and coordination of care as described above. Vital Signs/Physical Exam: Temp Pulse Resp BP Pulse Ox 97.8 F 86 14 105/72 99 01/10/22 04:00 01/10/22 04:00 01/10/22 04:00 01/10/22 04:00 01/10/22 04:00 General: Alert, In no apparent distress, Oriented x3 HEENT: Atraumatic, Mucous membr. moist/pink, EOMI, Sclerae nonicteric Neck: JVD not distended Respiratory: Clear to auscultation bilaterally, Normal air movement Cardiovascular: No edema, Regular rate/rhythm, Normal S1 S2, No gallops, No rubs, No murmurs Gastrointestinal: Normal bowel sounds, Soft and benign, Non-distended, No tenderness, No rebound, No guarding Musculoskeletal: No clubbing Integumentary: No rashes Neurological: Normal speech, Normal affect Laboratory Data at Discharge: WBC 8.10 K/uL (4.3-10.9) 01/09/22 16:34 Hgb 16.3 g/dL (13.6-17.9) 01/09/22 16:34 Hct 46.7 % (39.6-49.0) 01/09/22 16:34 Plt Count 292 K/uL (152-406) 01/09/22 16:34 PT 12.2 SECONDS (9.5-12.5) 01/09/22 16:34 INR 1.11 01/09/22 16:34 Sodium 139 mmol/L (136-145) 01/09/22 16:34 Potassium 3.9 mmol/L (3.5-5.1) 01/09/22 16:34 BUN 10 mg/dL (7-18) 01/09/22 16:34 Creatinine 1.00 mg/dL (0.55-1.3) 01/09/22 16:34 Glucose 114 mg/dL (74-106) H 01/09/22 16:34 Magnesium 2.2 mg/dL (1.8-2.4) 01/09/22 16:34 Total Bilirubin 0.7 mg/dL (0.2-1.0) 01/09/22 16:34 AST 19 U/L (15-37) 01/09/22 16:34 ALT 44 U/L (12-78) 01/09/22 16:34 Alkaline Phosphatase 84 U/L (45-117) 01/09/22 16:34 Home Medications: Aspirin [Aspirin EC 81 MG] 81 mg PO DAILY 6PM #1 01/10/22 RX: Metoprolol Tartrate [Lopressor*] 25 mg PO DAILY PRN #30 tab 01/10/22 New Medications: Aspirin [Aspirin EC 81 MG] 81 mg PO DAILY 6PM #1 RX: Metoprolol Tartrate [Lopressor*] 25 mg PO DAILY PRN #30 tab PRN Reason: Anxiety Physician Discharge Instructions: 1. Please call and schedule a follow-up appointment with your PCP (Dr. Gutierrez) in 3-5 days - Please have him schedule a follow-up for a sleep study to look for sleep apnea 2. Please call and schedule a follow-up appointment with Cardiology (Dr. Avalos) in 5-7 days - Please have him schedule you for an echocardiogram Diet: AHA Activity: Ad mal Followup: Vignesh Gutierrez MD [Primary Care Provider] - Joesph Avalos MD [ACTIVE - CAN ADMIT] - Time spent managing pt's care (in minutes): 20
[2022-01-10] MEDS: ENOXAPARIN 40 MG/0.4 ML SQ SCH ×2 (09:00→09:07)
[2022-01-10 09:11] VITALS: BP 105/72
[2022-01-10 11:24] VITALS: O2SAT 99
--- NOTE | 2022-01-12 12:55 | EKG ---
Test Date: 2022-01-09 Test Time: 16:51:06 [place] [employer]: HB MEASUREMENT RESULTS: Intervals: Rate: 150 CT: QRSD: 82 QT: 282 QTc: 445 [place]: P: CT: QRS: 45 T: -31 INTERPRETIVE STATEMENTS: Atrial fibrillation with rapid ventricular response T wave abnormality, consider inferior ischemia or digitalis effect Abnormal ECG Compared to ECG 02/25/2015 00:21:26 T-wave abnormality now present Possible ischemia now present Sinus rhythm no longer present Electronically Signed On 01-12-22 12:51:07 GERMINATION TESTING MANAGER by Isaiah Barraza
--- NOTE | 2022-01-12 12:55 | EKG ---
Test Date: 2022-01-09 Test Time: 20:23:38 Vehicle Monitor Technician: DM MEASUREMENT RESULTS: Intervals: Rate: 70 MT: 166 QRSD: 86 QT: 380 QTc: 410 [place]: P: 47 MT: 166 QRS: 32 T: 27 INTERPRETIVE STATEMENTS: Normal sinus rhythm Normal ECG Compared to ECG 01/09/2022 16:51:06 Atrial fibrillation no longer present T-wave abnormality no longer present Possible ischemia no longer present Electronically Signed On 01-12-22 12:50:55 APPEALS REFEREE by Isaiah Barraza
== END 2022-01-10 10:50 | disposition home or self-care (01) ==
LOC: ER 14:01 → ERHOLD 19:28
PROVIDERS: ADMIT Internal Medicine; ATTEND Internal Medicine
DX: I48.20 Chronic atrial fibrillation, unspecified (principal); Z88.6 Allergy status to analgesic agent
CPT/HCPCS: 93005 ×2; 85025; 80048; 36415; 83735; 85610; 85379; 80076; 84443; 84484; 84481; 83880; 80307; 71045; 96372; 96374; 99285; J1650; J7030; G0378 ×3; 81003; 81015

== ENCOUNTER 2022-11-24 13:35 | Emergency (ER) | payer OTHER ==
--- OUTSIDE RECORDS SUMMARY | 2022-11-24 13:38 | XMS REPORT | Continuity of Care Document ---
:1980 Author Organization [facility] t Address [address] [facility] [address] [place] [address] Care Team Providers Name Role Phone Matt Lowe MD, Vignesh Primary Care Physician [phone] JADEN VICKERS Attending Clinician Unavailable Jaden Vickers MD Attending Clinician Doctor Unassigned, Shiro Attending Clinician Unavailable Tech, [facility] Attending Clinician Unavailable Carlos Berumen MD Attending Clinician CARLOS BERUMEN Attending Clinician Unavailable CARLOS BERUMEN Attending Clinician Unavailable JADEN VICKERS Admitting Clinician Unavailable Payers Payer Name Policy Type Policy Number Effective Date Expiration Date [facility] [id number] 2017 CHOICE 00:00:00 Problems Condition Condition Condition Status Onset Resolution Last Treating Co mments Source Name Details Category Date Date Treatment Clinician Date No known No known Disease Unive rs active active ity of problems problems [facility] Allergies, Adverse Reactions, Alerts Allergy Allergy Status Severity Reaction(s) Onset Inactive Treating Comm ents Source Name Type Date Date Clinician Codeine Propensi Active 2020-[address] [facility] reaction 00 Center s Steroids Propensi Active 2020-[address] [facility] [address] [facility] to 1[facility]17 [facility] adverse 00:[facility]: Medical reaction 00 Center s Steroids Propensi Active 2019-[address] [facility] [facility] to 1[facility]17 [facility] adverse 00:00: Medical reaction 00 Center s Codeine Propensi Active hallucina Meth kai ty to 2-[address] adverse 00:00: Hospita reaction 00 l s to drug Corticos Propensi Active All Method i teroids ty to 2-07 steroids- st (Glucoco adverse 00:00: hallucina Hosp danielito rticoids reaction 00 tions l ) s to drug Corticos Propensi Active Unknown - All Uni vers teroids ty to See comments 2-07 steroids- ity of ([place] adverse 00:[place] rtic[place] reaction 00 tions Medica l ) s Branch CORTICOS Drug Active Unknown-Cmnt Un joao TEROIDS Class 2-07 ity of (GLUCOCO 00:00: [place] RTICOIDS 00 Medical ) Branch Codeine Propensi Active Hallucinatio hallucin a Univers ty to ns 1-14 tions ity of adverse 00:00: [place] reaction 00 Medical s Branch Predniso Propensi Active Hallucinatio Any PO Univers ne ty to ns 1-14 steroids ity of adverse 00:00: [place] reaction 00 Medical s Branch CODEINE DRUG Active Hallucinates Uni vers INGREDI 1-14 ity of 00:00: [place] 00 Medical Branch PREDNISO DRUG Active Hallucinates Un joao NE INGREDI 1-14 ity of 00:00: [place] 00 Medical Branch Family History Family Member Diagnosis Comments Start Date Stop Date Source Natural father Cirrhosis [facility] Natural mother GERD [facility] Social History Social Habit Start Date Stop Date Quantity Comments Source Sexual orientation [facility] SDOH [facility] Alcohol Std Drinks [facility]ica l Center History SDOH [facility] Alcohol Binge Medical [facility] History SDOH [facility] Alcohol Comment Medical C enter Exposure to 2022-04-26 2022-05-06 Not sure University of SARS-CoV-2 (event) 00:00:00 14:51:00 [facility] Branch History SDOH 2019-03-04 2019-03-[address] [facility] Alcohol Frequency 00:00:00 00:00:00 Medical Center Alcohol intake 2019-03-03 2019-03-[address] [facility] 00:00:00 00:00:00 non-drinker of Medical Ce nter alcohol (finding) Tobacco use and 2019-03-03 2019-03-03 Never used MAYITO Ontiveros exposure 00:00:00 00:00:00 Medical Center History of Social 2018-10-08 2018-10-[address] function 00:00:00 00:00:00 Hospital Alcohol intake 2018-05-02 2018-05-02 Current [facility] 00:00:00 00:00:00 non-drinker of Hospital alcohol (finding) Sex Assigned At [birth year] MAYIT[facility] Ontiveros 00:00:00 00:00:00 Medical Center Smoking Status Start Date Stop Date Source Never smoker [facility] Medications Ordered Filled Start Stop Current Ordering Indication Dosage Frequency Signature Comments Components Source Medication Medication Date Date Medication? Clinician (SIG) Name Name aspirin 81 Yes 81mg Take 1 Unive rs mg chewable 3-22 tablet by ity of tablet 14:58: mouth in [place] [address] the Medical morning. Branch aspirin 81 Yes 81mg Take 1 Unive rs mg chewable 3-22 tablet by ity of tablet 14:58: mouth in [place] [address] the Medical morning. Branch No known 2021-02 No No known Unive rs medications 2-22 medication it y of 13:31: [address] No known 2021-02 No No known Unive rs medications 2-22 medication it y of 13:31: [address] No known 2021- No No known Unive rs medications 2-22 medication it y of 13:31: [address] No known 2021-02 No No known Unive rs medications 2-22 medication it y of 13:31: [address] No known 2021- No No known Unive rs medications 2-22 medication it y of 13:31: [address] No known 2021-02 No No known Unive rs medications 2-22 medication it y of 13:31: [address] No known 2021-02 No No known Unive rs medications 2-22 medication it y of 13:31: [address] No known No No known Unive rs medications 9-18 medication it y of 09:59: [address] RESTASIS 2017-02 Yes INSTILL 1 Meth kai 0.05 % 2-[address] ophthalmic 00:00: BOTH EYES Ho spita emulsion 00 TWICE A l DAY RESTASIS 2018-1 Yes INSTILL 1 Meth kai 0.05 % 2-[address] ophthalmic 00:00: BOTH EYES Ho spita emulsion 00 TWICE A l DAY Vital Signs Vital Name Observation Time Observation Value Comments Source Systolic blood 2022-05-06 20:01:00 125 mm[Hg] Univer sity of pressure [facility] Diastolic blood 2022-05-06 20:01:00 79 mm[Hg] Unive rsity of [facility] Heart rate 2022-05-06 20:01:00 85 /min Universi ty of [facility] Body temperature 2022-05-06 20:01:00 37.11 Melisa [facility] ersity [facility] Respiratory rate 2022-05-06 20:01:00 18 /min Univ ersity of [facility] Body height 2022-05-06 20:01:00 180.3 cm Universi ty of [facility] Body weight 2022-05-06 20:01:00 98.113 kg Universi ty [facility] BMI 2022-05-06 20:01:00 30.17 kg/m2 [facility]i ty [facility] Oxygen saturation in 2022-05-06 20:01:00 96 /min University of Arterial blood by [facility] Pulse oximetry Branch Systolic blood 2022-02-05 19:33:00 123 mm[Hg] Univer sity of [facility] Diastolic blood 2022-02-05 19:33:00 79 mm[Hg] Unive rsity of [facility] Heart rate 2022-02-05 19:33:00 93 /min Universi ty of [facility] Body temperature 2022-02-05 19:33:00 37.22 Melisa Univ ersity [facility] Respiratory rate 2022-02-05 19:33:00 17 /min Univ ersity of [facility] Body height 2022-02-05 19:33:00 180.3 cm Universi ty of [facility] Body weight 2022-02-05 19:33:00 101.47 kg Universi ty of [facility] BMI 2022-02-05 19:33:00 31.20 kg/m2 Universi ty of [facility] Oxygen saturation in 2022-02-05 19:33:00 95 /min University of Arterial blood by [facility] Pulse oximetry Branch Procedures Procedure Date / Time Performed Performing Clinician Sona BENAVIDEZ PATIENT FINANCIAL 2022-05-06 19:53:33 Doctor Unassigned, No [facility] POLICY Name [facility] [place] HB ECG ROUTINE & 2022-02-05 19:35:00 Jaden Vickers [facility] RHYTHM STRIP Medical Branch ASSIGNMENT OF BENEFITS 2022-02-05 19:09:47 Doctor Unassigned, No [facility] Name [facility] [place] Plan of Care Planned Activity Planned Date Details Comments Source Future Scheduled 2022-11-24 COVID-19 VACCINE [facility] Test 13:37:51 (#1) [code = COVID-19 VACCINE (#1)] Future Scheduled 2022-11-24 INFLUENZA VACCINE [facility] Test 13:37:51 (#1) [code = INFLUENZA VACCINE (#1)] Future Scheduled 2022-01-04 HEPATITIS B VACCINES [facility] Test 07:54:23 (1 of 3 - 3-dose series) [code = HEPATITIS B VACCINES (1 of 3 - 3-dose series)] Future Scheduled 2022-01-04 COVID-19 VACCINE [facility] Hospital Test 07:54:23 (#1) [code = COVID-19 VACCINE (#1)] Future Scheduled 2022-01-04 INFLUENZA VACCINE Method is Hospital Test 07:54:23 [code = INFLUENZA VACCINE] Future Scheduled 2021-10-[address] [facility] Test 00:00:00 (#1) [code = [facility] INFLUENZA VACCINE (#1)] Future Scheduled 2021-02-[address] [facility] Test 00:00:00 (12+) [code = [facility] DEPRESSION SCREENING (12+)] Future Scheduled 2015-09-[address] [facility] Test 00:00:00 (procedure) [code = [facility] [id number]] Future Scheduled 1999-09-16 DTAP/TDAP/TD [facility] Test 00:00:00 VACCINES (1 - Tdap) [facility] [code = DTAP/TDAP/TD VACCINES (1 - [...] Test 00:00:00 (#1) [code = Medical Center COVID-19 VACCINE (#1)] Encounters Start End Encounter Admission Attending Care Care Encounter Source Date/Time Date/Time Type Type Clinicians Facility Department ID 2023-05-10 2023-05-10 Outpatient R [facility] [id number] Univers 14:20:00 14:20:00 JADEN malagon o f [facility] 2022-05-06 2022-05-06 Office [facility] [id number] Univers 15:20:00 15:20:00 Visit Jaden PRICE [id number] ity [id number] [id number] [address] 2022-05-06 2022-05-06 Outpatient R [facility] [id number] Univers 15:20:00 15:15:07 JADEN fox f [facility] 2022-05-06 2022-05-06 Orders Doctor CONOR [id number] Univers 00:00:00 00:00:00 Only Unassigned, UZMA [id number] ity of [place] [facility] [id number] Joseluis as [id number] [address] 2022-03-05 2022-03-05 Telephone [facility] [id number] Univers 00:00:00 00:00:00 Jaden PRICE [id number] [id number] [id number] Al dical NAL 9 [facility] 2022-02-26 2022-02-26 Cylinder Loader Joshua, [facility] Sleep Lab [facility] [id number] Univers 15:00:00 15:15:00 Visit Carlos Berumen [id number]. 10 [id number] [id number] [address] 2022-02-26 2022-02-26 Outpatient R TKTYLER MARTÍNEZMARIA T [facility] [id number] Univers 15:00:00 15:00:00 CARLOS BERUMEN ity of [facility] 2022-02-25 2022-02-25 Telephone [facility] [id number] Univers 00:00:00 00:00:00 Jaden PRICE [id number] ity of [id number] [id number] [address] 2022-02-25 2022-02-25 [facility] [id number] Univers 00:00:00 00:00:00 Jaden PRICE [id number] it[id number] [id number] [address] 2022-02-24 2022-02-24 Outpatient R [facility] [id number] Univers 10:44:37 23:59:00 JADEN malagon o f [facility] 2022-02-05 2022-02-05 Office [facility] [id number] Univers 13:20:00 14:03:34 Visit Jaden PRICE [id number] it[id number] [id number] [address] 2022-02-05 2022-02-05 Outpatient R [facility] [id number] Univers 13:20:00 14:03:34 JADEN malagon o f [facility] 2022-02-05 2022-02-05 Orders Doctor PERDOMO [id number] Univers 00:00:00 00:00:00 Only Unassigned, UZMA [id number] ity of [place] [facility] [id number] Joseluis as [phone] [place] [address] Branch 2019-08-22 2019-08-22 Outpatient Angel VICKERS [facility] [id number] Univers 11:00:00 11:00:00 JADEN monzon [facility] Results This patient has no known results.
--- NOTE | 2022-11-24 15:48 | RAD REPORT ---
EXAM DESCRIPTION: RAD - Ankle Left 3 View - 11/24/2022 2:08 pm CLINICAL HISTORY: Pain;Swelling COMPARISON: No comparisons TECHNIQUE: Left ankle, 3 views. FINDINGS: No fracture, dislocation or periosteal reaction. No joint effusion seen. No joint space na rrowing. Soft tissue swelling about the ankle most pronounced anteriorly and laterally. Enthesopathy at the Achilles tendon attachment. IMPRESSION: Soft tissue swelling as above, without acute osseous abnormality.
--- NOTE | 2022-11-24 15:51 | ER ---
Nurse's Notes [facility] Name: Wilson Fonseca Age: 42 yrs Sex: Male : 1980 Arrival Date: 11/24/2022 Time: 13:35 Bed DX5 Private MD: Diagnosis: Sprain of unspecified ligament of left ankle Presentation: 11/24 14:32 Chief complaint: Patient states: Left ankle pain. Jump out of a truck today, landed on [facility] asphalt/grass, twisting left ankle. Coronavirus screen: Vaccine status: Patient reports being unvaccinated. Ebola Screen: Patient denies travel to an Ebola-affected area in the 21 days before illness onset. Initial Sepsis Screen: Does the patient meet any 2 criteria? No. Patient's initial sepsis screen is negative. Does the patient have a suspected source of infection? No. Patient's initial sepsis screen is negative. Risk Assessment: Do you want to hurt yourself or someone else? Patient reports no desire to harm self or others. Onset of symptoms was November 24, 2022. 14:32 Method Of Arrival: Wheelchair [facility] 14:32 Acuity: MARCIO 3 [facility] Historical: - Allergies: 14:33 Codeine; nj1 14:33 steroids; me1 - PMHx: 14:33 None; me1 - PSHx: 14:33 Appendectomy; nj1 - Immunization history:: Client reports having NOT received the Covid vaccine. - Social history:: Smoking status: Patient denies any tobacco usage or history of. Vital Signs: 14:31 BP 120 / 79; Pulse 68; Resp 18; Temp 98.8(TE); Pulse Ox 100% ; Weight 92.99 kg; Height [facility] 5 ft. 11 in. ; Pain 4/10; 14:31 Body Mass Index 28.59 (92.99 kg, 180.34 cm) [facility] 14:31 Pain Scale: Adult [facility] ED Course: 13:38 Patient arrived in ED. mr 13:46 Lavern Bauman FNP [facility] 13:46 James Cutler MD is Attending Physician. [facility] 14:10 XRAY Ankle LEFT 3 view In Process Unspecified. EDMS 14:33 Triage completed. nj1 14:34 Arm band placed on right wrist. nj1 15:50 [place], Sathya, MD is Referral Physician. [facility] 16:38 No provider procedures requiring assistance completed. Patient did not have IV access hb during this emergency room visit. Administered Medications: No medications were administered Outcome: 15:50 Discharge ordered by . jh7 16:38 Discharged to home ambulatory, hb 16:38 Condition: stable 16:38 Discharge instructions given to patient, Instructed on discharge instructions, follow up and referral plans. medication usage, Demonstrated understanding of instructions, follow-up care, medications, 16:38 Patient left the ED. hb Signatures: Dispatcher [employer] EDMS Isamar Dimas, Reg Reg mr EspinoNida, RN RN Lavern Bauman, MASTER [employer] [facility] Sofia Palacio, RN RN nj1
--- NOTE | 2022-11-24 15:51 | EDPHYS ---
Physician Documentation [facility] Name: Wilson Fonseca Age: 42 yrs Sex: Male : 1980 Arrival Date: 11/24/2022 Time: 13:35 Bed DX5 Private MD: ED Physician James Cutler HPI: 11/24 13:46 This 42 yrs old Male presents to ER via Unassigned with complaints of Ankle Injury. jh7 13:46 The patient presents with decreased range of motion, pain, swelling, tenderness. The jh7 complaints affect the left ankle. Onset: The symptoms/episode began/occurred acutely. Context: The problem was sustained at work, resulted from Patient jumped out of a truck and rolled ankle. Context: The mechanism of injury involved inversion of the affected ankle. The patient can partially bear weight on the affected extremity. the patient is able to ambulate, with mild difficulty. Associated signs and symptoms: Pertinent positives: swelling, Pertinent negatives: calf tenderness, fever, nausea, weakness. Historical: - Allergies: 14:33 Codeine; nj1 14:33 steroids; nj1 - PMHx: 14:33 None; nj1 - PSHx: 14:33 Appendectomy; nj1 - Immunization history:: Client reports having NOT received the Covid vaccine. - Social history:: Smoking status: Patient denies any tobacco usage or history of. ROS: 13:46 Constitutional: Negative for fever, chills, and weight loss, Eyes: Negative for injury, jh7 pain, redness, and discharge, Neck: Negative for injury, pain, and swelling, Cardiovascular: Negative for chest pain, palpitations, and edema, Respiratory: Negative for shortness of breath, cough, wheezing, and pleuritic chest pain, Back: Negative for injury and pain, Skin: Negative for injury, rash, and discoloration, Neuro: Negative for headache, weakness, numbness, tingling, and seizure, 13:46 MS/extremity: Positive for pain, swelling, tenderness, of the left ankle, 13:46 All other systems are negative, Exam: 13:46 Constitutional: This is a well developed, well nourished patient who is awake, alert, jh7 and in no acute distress. Head/Face: Normocephalic, atraumatic. Neck: Trachea midline, no thyromegaly or masses palpated, and no cervical lymphadenopathy. Supple, full range of motion without nuchal rigidity, or vertebral point tenderness. No Meningismus. Cardiovascular: Regular rate and rhythm with a normal S1 and S2. No gallops, murmurs, or rubs. Normal PMI, no JVD. No pulse deficits. Respiratory: Lungs have equal breath sounds bilaterally, clear to auscultation and percussion. No rales, rhonchi or wheezes noted. No increased work of breathing, no retractions or nasal flaring. Back: No spinal tenderness. No costovertebral tenderness. Full range of motion. Skin: Warm, dry with normal turgor. Normal color with no rashes, no lesions, and no evidence of cellulitis. Neuro: Awake and alert, GCS 15, oriented to person, place, time, and situation. Motor strength 5/5 in all extremities. Sensory grossly intact. Normal gait. 13:46 Musculoskeletal/extremity: Extremities: noted in the left lateral malleolus: decreased ROM, ecchymosis, swelling, tenderness, ROM: limited active range of motion due to pain, in the left ankle, Pulses: are normal with no appreciated deficits, Perfusion: the extremity is pink, warm, with brisk capillary refill, Sensation intact. Vital Signs: 14:31 BP 120 / 79; Pulse 68; Resp 18; Temp 98.8(TE); Pulse Ox 100% ; Weight 92.99 kg; Height nj1 5 ft. 11 in. ; Pain 4/10; 14:31 Body Mass Index 28.59 (92.99 kg, 180.34 cm) [facility] 14:31 Pain Scale: Adult nj1 MDM: 13:46 Patient medically screened. [facility] 15:52 Differential diagnosis: fracture, sprain. Data reviewed: vital signs, nurses notes, [facility] radiologic studies, plain films. Independent interpretation of the following test(s) in the Emergency Department X-Ray: My interpretation is no acute fractures. Counseling: I had a detailed discussion with the patient and/or guardian regarding the historical points, exam findings, and any diagnostic results supporting the discharge/admit diagnosis, to return to the emergency department if symptoms worsen or persist or if there are any questions or concerns that arise at home. 11/24 13:50 Order name: XRAY Ankle LEFT 3 view; Complete Time: 15:50 [facility] 11/24 15:50 Order name: Andrea wrap-joint; Complete Time: 16:38 [facility] 11/24 16:28 Order name: Walking boot; Complete Time: 16:38 [facility] Administered Medications: No medications were administered Disposition: 16:40 Co-signature as Attending Physician, James Cutler MD I reviewed the patient's care rt provided by the Advanced Practice Provider and agree with the diagnosis and treatment plan. Disposition Summary: 11/24/22 15:50 Discharge Ordered Notes: Location: Home [facility] Problem: new [facility] Symptoms: are unchanged [facility] Condition: Stable [facility] Diagnosis - Sprain of unspecified ligament of left ankle [facility] Followup: [facility] - With: Sathya Subramanian MD - When: 1 week - Reason: Recheck today's complaints Discharge Instructions: - Discharge Summary Sheet [facility] - Ankle Sprain [facility] - Crutch Use, Adult [facility] Forms: - Work release form kb - Medication Reconciliation Form [facility] - Thank You Letter [facility] - Patient Portal Instructions [facility] - Leadership Thank You Letter [facility] Prescriptions: - Naprosyn 500 mg Oral Tablet - take 1 tablet ORAL route 2 times per day take with food; 30 tablet; Refills: 0, jh7 Product Selection Permitted Signatures: Dispatcher [employer] EDMS Lavren Bauman, WIRE INSERTER WIRE INSERTER [facility] James Cutler MD MD rt Sofia Palacio RN RN nj1 Corrections: (The following items were deleted from the chart) 16:28 15:50 Crutches ordered. [place] [id number]
[2022-11-24 17:25] VITALS: BP 120/79; TEMP 98.8; O2SAT 100
== END 2022-11-24 16:38 | disposition home or self-care (01) ==
LOC: ER 13:35
DX: S93.402A Sprain of unspecified ligament of left ankle, initial encounter (principal); Z88.5 Allergy status to narcotic agent; Z88.8 Allergy status to other drugs, medicaments and biological substances
CPT/HCPCS: 99282

== ENCOUNTER 2024-05-26 10:12 | Emergency (ER) | payer BC ==
[2024-05-26] MEDS ORDERED: LIDOCAINE 2% W/EPI 1:200,000 MPF 20 ML VIAL IM ONE (10:38)
[2024-05-26] MEDS ORDERED: LIDOCAINE VISCOUS 2% 10ML ORAL SOLN ONE (10:56)
[2024-05-26] MEDS ORDERED: LIDOCAINE 1% MPF 5 ML VIAL ONE (12:42)
--- NOTE | 2024-05-26 13:16 | ER ---
Nurse's Notes [facility] Name: Wilson Fonseca Age: 43 yrs Sex: Male : 1980 Arrival Date: 05/26/2024 Time: 10:12 Bed 5 Private MD: Diagnosis: Bitten by dog Presentation: 05/26 10:24 Chief complaint: Bit on face and right 4th finger by family dog. Multiple small hb lacerations and punctures noted to right lower face, bleeding controlled. 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 Coronavirus screen: At this time, the client does not indicate any symptoms associated with coronavirus-19. Ebola Screen: No symptoms or risks identified at this time. Initial Sepsis Screen: Does the patient meet any 2 criteria? No. Patient's initial sepsis screen is negative. Does the patient have a suspected source of infection? No. Patient's initial sepsis screen is negative. Risk Assessment: Do you want to hurt yourself or someone else? Patient reports no desire to harm self or others. Onset of symptoms was May 26, 2024. 10:24 Method Of Arrival: Ambulatory 10:24 Acuity: MARCIO 3 hb Triage Assessment: 13:35 Bite description: bite sustained to right hand and face by a dog, animal information: ap3 vaccination(s) is not applicable. Historical: - Allergies: 10:26 Codeine; hb 10:26 steroids; hb - Home Meds: 10:26 None [Active]; hb - PMHx: 10:26 None; hb - PSHx: 10:26 Appendectomy; hb - Immunization history:: Adult Immunizations up to date. - Infectious Disease History:: Denies. - Social history:: Smoking status: Patient denies any tobacco usage or history of. Screenin:42 Abuse screen: Denies threats or abuse. Nutritional screening: No deficits noted. ap3 Tuberculosis screening: No symptoms or risk factors identified. 11:42 [facility] ED Fall Risk Assessment (Adult) History of falling in the last 3 months, ap3 including since admission No falls in past 3 months (0 pts) Confusion or Disorientation No (0 pts) Intoxicated or Sedated No (0 pts) Impaired Gait No (0 pts) Mobility Assist Device Used No (0 pt) Altered Elimination No (0 pt) Score/Fall Risk Level 0 - 2 = Low Risk Oriented to surroundings, Maintained a safe environment, Educated pt \T\ family on fall prevention, incl call for assistance when getting out of bed, Assessed \T\ reinforced patient's understanding of fall precautions, Hourly rounding (assess needs \T\ fall precautionary measures) done, Used ambulatory aids as needed (educated on \T\ assisted with). Assessment: 10:41 General: Appears in no apparent distress. Behavior is calm, cooperative, appropriate ap3 for age. Pain: Complains of pain in face. Neuro: Level of Consciousness is awake, alert, obeys commands, Oriented to person, place, time, situation. Cardiovascular: Patient's skin is warm and dry. Respiratory: Airway is patent Respiratory effort is even, unlabored, Respiratory pattern is regular, symmetrical. Derm: Skin multiple wounds on face and in mouth Skin is pink, warm \T\ dry. Vital Signs: 10:24 BP 122 / 92; Pulse 89; Resp 16; Temp 98.1; Pulse Ox 99% on R/A; Weight 90.72 kg; Height hb 5 ft. 11 in. ; Pain 5/10; 10:24 Body Mass Index 27.89 (90.72 kg, 180.34 cm) hb 10:24 Pain Scale: Adult hb ED Course: 10:13 Patient arrived in ED. cj3 10:14 Jordi Ridley MD is Attending Physician. jr11 10:26 Triage completed. hb 10:26 Arm band placed on. hb 10:41 Maru Diaz, SHAYLA is Primary Nurse. ap3 11:42 Wound care: located on face was cleaned with Hibiclens, Patient tolerated well. ap3 13:34 Assist provider with laceration repair on right hand and face using sutures. Set up ap3 tray. Performed by Jordi Ridley MD Patient tolerated well. Patient did not have IV access during this emergency room visit. 13:35 Patient has correct armband on for positive identification. Bed in low position. Call ap3 light in reach. Side rails up X 1. Provided Education on: wound care. Administered Medications: 13:34 Drug: Lidocaine-Epinephrine Infiltration -1%: (1:100,000) 11 ml 20 ml Infiltration ap3 once; to bedside {Note: by dr ridley .} Volume: 20 ml; Route: Infiltration; Medication: 13:35 VIS not applicable for this client. ap3 Outcome: 13:16 Discharge ordered by . ashley 13:35 Condition: good ap3 13:47 Discharged to home ambulatory, ap3 13:47 Discharge instructions given to patient, Instructed on discharge instructions, follow up and referral plans. medication usage, Demonstrated understanding of instructions, Prescriptions given X 1, 13:47 Patient left the ED. ap3 Signatures: Nida Espino RN RN hb Maru Diaz RN RN ap3 Jordi Ridley MD MD jr11 Shahnaz Hannah 3 Corrections: (The following items were deleted from the chart) 10:26 10:24 Acuity: MARCIO 4 hb hb
--- NOTE | 2024-05-26 13:16 | EDPHYS ---
Physician Documentation [facility] Name: Wilson Fonseca Age: 43 yrs Sex: Male : 1980 Arrival Date: 05/26/2024 Time: 10:12 Bed 5 Private MD: ED Physician Jordi Ridley HPI: 05/26 10:33 Chief Complaint: Dog bite to the right hand and face. History of Present Illness: The jr11 patient presented after being bitten by their own dog while attempting to take the dog to the vet. The dog was unresponsive and barely breathing, leading the patient to suspect a possible stroke. Upon attempting to pick out hand the dog, the dog bit the patient's right hand multiple times, breaking the skin on the right ring finger. The patient also sustained a laceration on the chin, approximately 2 cm in length, which will need repair. The dog, unfortunately, had to be put down due to heart failure. The patient reported the last tetanus vaccination was approximately five years ago. The patient has a concern about bleeding and discomfort inside the mouth when drinking water, which may be a result of a tear in the lower lip extending into the gum line. Review of Systems: - Positive for lacerations and bite wounds on the right hand and chin. - Reports bleeding and discomfort in the mouth. - ROS otherwise negative. . Historical: - Allergies: 10:26 Codeine; hb 10:26 steroids; hb - Home Meds: 10:26 None [Active]; hb - PMHx: 10:26 None; hb - PSHx: 10:26 Appendectomy; hb - Immunization history:: Adult Immunizations up to date. - Infectious Disease History:: Denies. - Social history:: Smoking status: Patient denies any tobacco usage or history of. Exam: 10:33 Constitutional: This is a well developed, well nourished patient who is awake, alert, jr11 and in no acute distress. Head/Face: 2 cm lip lac R side lower lip, not on lucia, 2 cm L side side of face ENT: mucosal tear 2 cm lower lip to gumline Chest/axilla: Normal chest wall appearance and motion. Nontender with no deformity. No lesions are appreciated. Cardiovascular: Regular rate and rhythm with a normal S1 and S2. No gallops, murmurs, or rubs. Normal PMI, no JVD. No pulse deficits. Respiratory: Lungs have equal breath sounds bilaterally, clear to auscultation and percussion. No rales, rhonchi or wheezes noted. No increased work of breathing, no retractions or nasal flaring. Abdomen/GI: Soft, non-tender, with normal bowel sounds. No distension or tympany. No guarding or rebound. No evidence of tenderness throughout. Back: No spinal tenderness. No costovertebral tenderness. Full range of motion. MS/ Extremity: Pulses equal, no cyanosis. Neurovascular intact. Full, normal range of motion. Neuro: Awake and alert, GCS 15, oriented to person, place, time, and situation. No gross motor or sensory deficits. Vital Signs: 10:24 BP 122 / 92; Pulse 89; Resp 16; Temp 98.1; Pulse Ox 99% on R/A; Weight 90.72 kg; Height hb 5 ft. 11 in. ; Pain 5/10; 10:24 Body Mass Index 27.89 (90.72 kg, 180.34 cm) hb 10:24 Pain Scale: Adult hb Laceration: 10:33 Wound Repair of 6cm ( 2.4in ) subcutaneous laceration to mouth, lower inner lip, tear 2 jr11 cm, also putside lip as per HPI. Distal neuro/vascular/tendon intact. Anesthesia: Local anesthetic administered with 10 mls of 1% lidocaine w/ Epi. Wound prep: Extensive cleansing by nurse. Mucosal layer closed with 4-0 Vicryl using simple sutures and sterile technique. MDM: 10:30 Medical Screening Exam initiated jr11 10:33 Differential diagnosis: Medical Decision Making: Differential Diagnosis: 1. Dog bite jr11 wound. 2. Laceration requiring sutures. 3. Possible infection risk from dog bite. 4. Tetanus prophylaxis consideration. 5. Less likely but life-threatening: Rabies exposure (though the dog was the patient's own pet) - declined animal control Plan: - Clean and irrigate the wound on the right hand and chin. - Suture the laceration on the chin. - Consider trimming ruggiero for better access to wound. - Provide mouth rinse for oral wound care. - Monitor for signs of infection. - Confirm tetanus immunization status; no booster needed as last dose was within five years. - Educate the patient on wound care and signs of infection. 10:33 ED course: considered xray but superficial. jr11 05/26 10:29 Order name: Wound Care; Complete Time: 11:04 jr11 Administered Medications: 13:34 Drug: Lidocaine-Epinephrine Infiltration -1%: (1:100,000) 11 ml 20 ml Infiltration ap3 once; to bedside {Note: by dr ridley .} Volume: 20 ml; Route: Infiltration; Disposition Summary: 05/26/24 13:16 Discharge Ordered Notes: Location: Home jr11 Condition: Stable jr11 Diagnosis - Bitten by dog jr11 Followup: jr11 - With: Private Physician - When: 5 - 6 days - Reason: Staple/Suture removal Discharge Instructions: - Discharge Summary Sheet jr11 - Animal Bite, Adult jr11 Forms: - Medication Reconciliation Form jr11 - Antibiotic Education jr11 - Prescription Opioid Use jr11 - Patient Portal Instructions jr11 - Leadership Thank You Letter jr11 Prescriptions: - Augmentin 875-125 mg Oral Tablet - take 1 tablet ORAL route every 12 hours for 10 days; 20 tablet; Refills: 0, jr11 Product Selection Permitted Signatures: Nida Espino RN RN Maru Diaz RN RN ap3 Jordi Ridley MD MD jr11 Corrections: (The following items were deleted from the chart) 13:15 10:33 Wound Repair of 6cm ( 2.4in ) subcutaneous laceration to mouth, lower inner lip, jr11 tear 2 cm, also putside lip as per HPI. Distal neuro/vascular/tendon intact. Anesthesia: Local anesthetic administered with 10 mls of 1% lidocaine w/ Epi. Wound prep: Extensive cleansing by nurse. Skin closed with 5-0 Prolene using simple sutures and sterile technique. Mucosal layer closed with 4-0 Vicryl using simple sutures and sterile technique. jr11
[2024-05-26 14:18] VITALS: BP 122/92; TEMP 98.1; O2SAT 99
== END 2024-05-26 13:47 | disposition home or self-care (01) ==
LOC: ER 10:12
DX: S01.511A Laceration without foreign body of lip, initial encounter (principal); S01.512A Laceration without foreign body of oral cavity, initial encounter; W54.0XXA Bitten by dog, initial encounter
CPT/HCPCS: 99284; 12053; J2003